=== PATIENT | female | born 1950 | race Caucasian/White ===

== ENCOUNTER 2018-10-02 19:26 | Outpatient (REF) | payer MEDICARE, SELFPAY ==
[2018-10-02 20:11] LABS: ALT 42 U/L (12-78); AST 29 U/L (15-37); Albumin 4.4 g/dL (3.4-5.0); Alkaline Phosphatase 110 U/L (46-116); Anion Gap 12.5 mmol/L (3-11); BUN 19 mg/dL (7-18); Bilirubin, Total 0.6 mg/dL (0.2-1.0); CO2 29.5 mmol/L (21.0-32.0); CREATININE 0.99 mg/dL (0.55-1.02); Calcium 10.6 mg/dL (8.5-10.1); Chloride 99 mmol/L (98-107); Estimated GFR 55.78 (mL/min/1.73m2); Glucose 105 mg/dL (70-100); Potassium 3.7 mmol/L (3.5-5.1); Sodium 141 mmol/L (136-145); TSH 1.89 uIU/mL (0.358-3.74); Total Protein 7.8 g/dL (6.4-8.2)
[2018-10-06 09:56] LABS: Vitamin B12 298 pg/ml (211-911)
== END 2018-10-02 19:46 ==
LOC: NCHCN 19:26
PROVIDERS: PCP Physician Assistant Medical; Visit Provider Physician Assistant Medical
DX: I10 Essential (primary) hypertension (principal); E03.9 Hypothyroidism, unspecified; G62.9 Polyneuropathy, unspecified; R73.09 Other abnormal glucose
CPT/HCPCS: 80053; 82607; 83036; 84443

== ENCOUNTER 2018-11-09 11:55 | Outpatient (REF) | payer MEDICARE, OTHER, SELFPAY ==
--- NOTE | 2018-11-09 11:08 | SKI_PTH ---
PATIENT: Bailey Jackson LOC: N U#:[id number] AGE/SX: 68/F ROOM: RE11/09/[address]: Darius Leon DO : 1950 BED: DIS: 11/09/2018 SPEC #: [id number] RECD: 11/11/18 12:48 STATUS: MOSHE REQ #: [id number] KAYLIN: 11/09/18 11:[address]: Darius Leon DEPT: Surgical Specimen RECD BY: Aniyah Turner ENTERED: 11/11/18 12:48 SP TYPE: MARCO ANTONIO RODRIGUEZ DR: Chely Michelle Tissues: 1 - SKIN BIOPSY(SHAVE/PUNCH) Procedures: SKIN LEVEL 4 Comments: [id number]
== END 2018-11-09 12:15 ==
LOC: LBN 11:55
PROVIDERS: PCP Physician Assistant Medical; Visit Provider Otolaryngology Otolaryngology/Facial Plastic Surgery
DX: L82.1 Other seborrheic keratosis (principal)
CPT/HCPCS: 88305

== ENCOUNTER 2019-10-18 16:37 | Outpatient (REF) | payer MEDICARE, OTHER, SELFPAY ==
[2019-10-18 22:30] LABS: ALT 351 U/L (14-59); AST 148 U/L (15-37); Albumin 3.7 g/dL (3.4-5.0); Alkaline Phosphatase 239 U/L (46-116); Anion Gap 14.4 mmol/L (3-11); BUN 21 mg/dL (7-18); Bilirubin, Total 1.8 mg/dL (0.2-1.0); CO2 28.6 mmol/L (21.0-32.0); CREATININE 1.14 mg/dL (0.55-1.02); Calcium 10.3 mg/dL (8.5-10.1); Calculated LDL 111 mg/dL; Chloride 102 mmol/L (98-107); Cholesterol 189 mg/dL (<200); Estimated GFR 47.26 (mL/min/1.73m2); Glucose 118 mg/dL (74-106); HDL Cholesterol 34 mg/dL (40-60); Potassium 4.3 mmol/L (3.5-5.1); Sodium 145 mmol/L (136-145); TSH 1.08 uIU/mL (0.36-3.74); Total Protein 7.1 g/dL (6.4-8.2); Triglyceride 222 mg/dL (<150)
[2019-10-19 16:36] LABS: GGT 351 U/L (5-55)
[2019-10-21 15:06] LABS: Hepatitis A Antibody IgM Negative (Negative); Hepatitis B Core Antibody Negative (Negative); Hepatitis B surface Ag Negative (Negative); Hepatitis C Ab w Rflx HCV PCR Negative (Negative)
== END 2019-10-18 16:57 ==
LOC: NCHCN 16:37
PROVIDERS: PCP Physician Assistant Medical; Visit Provider Physician Assistant Medical
DX: E78.5 Hyperlipidemia, unspecified (principal); E03.9 Hypothyroidism, unspecified; I10 Essential (primary) hypertension; R79.89 Other specified abnormal findings of blood chemistry; R73.01 Impaired fasting glucose
CPT/HCPCS: 80053; 80061; 86704; 86709; 86803; 87340; 82977; 84443

== ENCOUNTER → 2019-11-01 01:11 | Outpatient (CLI) | payer MEDICARE, OTHER, SELFPAY ==
--- NOTE | 2019-11-01 07:39 | DI.US_ITS ---
EXAM: US ABDOMEN CLINICAL HISTORY: ELEVATED LFT'S.R79.89 TECHNIQUE: Ultrasound abdomen performed using standard protocol. COMPARISON: No exams were available for comparison FINDINGS: LIVER: Diffuse increased echogenicity consistent with hepatic steatosis. No evidence of a hepatic ma ss. There is hepatopetal flow through the portal vein. GALLBLADDER: There is gallbladder sludge present. There are also stones seen within the gallbladder. There does appear to be focal gallbladder wall thickening at its interface with the liver. This ar ea measures approximately 1 centimeter in diameter. No pericholecystic fluid identified. KIDNEYS: Kidneys are symmetric in size. No evidence of renal calculi. No evidence of hydronephrosis. There are bilateral simple renal cysts. The largest is in the left kidney and measures 4.7 x 4.1 x 3. 9 centimeters. BILIARY SYSTEM: Common bile duct measures 6 millimeters. No intrahepatic biliary ductal dilation. TURK'S SIGN: Negative. PANCREAS: Normal where visualized. SPLEEN: Not enlarged. ABDOMINAL AORTA AND IVC: Visualized portions normal caliber. ASCITES: None seen. IMPRESSION: 1. Hepatic steatosis. 2. Gallbladder sludge and cholelithiasis. No biliary ductal dilatation. 3. Focal (1 centimeter) gallbladder wall thickening adjacent to the liver. CT scan is recommended fo r further evaluation. Mass cannot be excluded. 4. Bilateral simple renal cysts.
== END ==
PROVIDERS: PCP Physician Assistant Medical; Visit Provider Physician Assistant Medical
DX: R79.89 Other specified abnormal findings of blood chemistry (principal); K76.0 Fatty (change of) liver, not elsewhere classified; K80.20 Calculus of gallbladder without cholecystitis without obstruction; N28.1 Cyst of kidney, acquired
CPT/HCPCS: 76700

== ENCOUNTER → 2019-11-12 09:54 | Outpatient (BNVA) | payer MEDICARE, OTHER, SELFPAY | PROVIDERS: PCP Physician Assistant Medical; Referring Provider Physician Assistant Medical; Visit Provider Surgery | DX: L82.1 Other seborrheic keratosis (principal); I10 Essential (primary) hypertension | CPT/HCPCS: 99202 ==

== ENCOUNTER → 2019-11-18 02:18 | Outpatient (CLI) | payer MEDICARE, OTHER, SELFPAY ==
[2019-11-18] MEDS: Omnipaque 350 MG/ML 50 ML BTL IJ (09:00)
--- NOTE | 2019-11-18 09:47 | DI.MAMMO_ITS ---
EXAM: MG MAMMO SCREENING CLINICAL HISTORY: SCREENING, [facility] EMERGENCY DEPARTMENT, Z00.8 TECHNIQUE: Mammograms were interpreted according to the usual protocol including computer analysis w VDP CAD system, tomosynthesis and C-view imaging. FINDINGS: The breasts are of moderate density with fairly symmetrical distribution of fibroglandular tissue. N o dominant mass or clumped microcalcification is identified in either breast. Current examination is compared with previous examinations including October 2017 and there has been no gross interval montse nge in appearance in comparison with the previous studies. IMPRESSION: No specific evidence of malignancy at this time. Routine screening examinations are suggested at year ly intervals in this age according the ACS ACR guidelines. Category 1. Breast density, category B. BI-RADS Cat 1 - Negative. Breast Density - Category B - Scattered areas of fibroglandular density.
--- NOTE | 2019-11-18 10:26 | DI.CT_ITS ---
EXAM: CT ABDOMEN PELVIS W CLINICAL HISTORY: ELEVATED LFT'S, R79.89, ABNL ABDOMEN IMAGING, R93.5 TECHNIQUE: CT examination of the abdomen and pelvis was performed with intravenous infusion of 100 c c of Omnique 350 and ingestion of dilute barium. COMPARISON: US ABDOMEN from 11/01/2019 FINDINGS: Images obtained through the lung bases are unremarkable. Liver and spleen appear normal. Recent abd ominal ultrasound showed gallbladder sludge and question of gallbladder fundal mass. No mass confirm ed by CT. Pancreas is unremarkable in appearance. No biliary dilatation. Large duodenal diverticul um. Adrenals and kidneys are unremarkable except for a large left renal cyst. No urinary tract calcifica tion or obstruction. No significant abdominal wall hernia seen. No abdominal or pelvic adenopathy. Abdominal aorta is of normal diameter and no major vascular is seen. Anastomotic sutures of the rectosigmoid and presumed ileocolonic anastomosis noted. IMPRESSION: No gallbladder wall mass identified by CT criteria. No evidence of acute process. MRCP may also be considered as the negative CT does not entirely exclude the possibility of a gallbla dder mass.
[2019-11-18] MEDS: Omnipaque 350 MG/ML 100 ML BTL IJ (10:37)
[2019-11-18] MEDS: Normal Saline - Diluent 50 ML VIAL IV (10:38)
== END ==
PROVIDERS: PCP Physician Assistant Medical; Visit Provider Physician Assistant Medical
DX: Z12.31 Encounter for screening mammogram for malignant neoplasm of breast (principal); K83.8 Other specified diseases of biliary tract; R93.5 Abnormal findings on diagnostic imaging of other abdominal regions, including retroperitoneum; K57.10 Diverticulosis of small intestine without perforation or abscess without bleeding
CPT/HCPCS: 77063; 77067; 74177; J3490; Q9967

== ENCOUNTER 2019-11-22 12:22 | Outpatient (REF) | payer MEDICARE, OTHER, SELFPAY ==
[2019-11-22 23:05] LABS: ALT 26 U/L (14-59); AST 19 U/L (15-37); Albumin 3.9 g/dL (3.4-5.0); Alkaline Phosphatase 123 U/L (46-116); Anion Gap 10.5 mmol/L (3-11); BUN 14 mg/dL (7-18); Bilirubin, Total 0.4 mg/dL (0.2-1.0); CO2 26.5 mmol/L (21.0-32.0); CREATININE 0.92 mg/dL (0.55-1.02); Calcium 9.4 mg/dL (8.5-10.1); Chloride 106 mmol/L (98-107); Glucose 109 mg/dL (74-106); Potassium 4.6 mmol/L (3.5-5.1); Sodium 143 mmol/L (136-145); Total Protein 6.9 g/dL (6.4-8.2)
== END 2019-11-22 12:42 ==
LOC: NCHCN 12:22
PROVIDERS: PCP Physician Assistant Medical; Visit Provider Physician Assistant Medical
DX: R79.89 Other specified abnormal findings of blood chemistry (principal)
CPT/HCPCS: 80053

== ENCOUNTER 2020-11-22 16:10 | Outpatient (REF) | payer MEDICARE, OTHER, SELFPAY ==
[2020-11-22 15:07] LABS: Abs Immature Grans 0.04 10^3/uL (0.0-0.06); Absolute Basophil Count 0.06 10^3/uL (0.0-0.2); Absolute Eosinophil Count 0.05 10^3/uL (0.0-0.7); Basophils % 0.5; Eosinophils % 0.4; HCT 41.8 % (36.0-46.0); HGB 14.2 g/dL (11.2-15.7); Immature Grans % 0.3; Lymphocytes % 9.1; MCH 30.5 pg (27.0-33.0); MCV 89.7 fL (80-95); MPV 9.9 fL (8.0-11.0); Neutrophils % 82.7; Nucleated RBC 0 %; Platelet Count 328 10^3/uL (130-400); RBC 4.66 10^6/uL (3.93-5.22); RDW 13.8 % (11.7-14.6); RDW-SD 45.3 fL; WBC 11.49 10^3/uL (4.4-10.8)
[2020-11-22 15:15] LABS: Absolute Lymphocyte Count 1.05 10^3/uL (1.2-3.4)
[2020-11-22 15:44] LABS: Hemoglobin A1C 5.5 % (<5.7)
[2020-11-22 15:46] LABS: ALT 178 U/L (14-59); AST 127 U/L (15-37); Albumin 3.8 g/dL (3.4-5.0); Alkaline Phosphatase 656 U/L (46-116); Amylase 64 U/L (25-115); Anion Gap 10.4 mmol/L (3-11); BUN 16 mg/dL (7-18); Bilirubin, Total 6.9 mg/dL (0.2-1.0); CO2 26.6 mmol/L (21.0-32.0); CREATININE 1.04 mg/dL (0.55-1.02); Calcium 9.9 mg/dL (8.5-10.1); Chloride 102 mmol/L (98-107); Estimated GFR 52.39 (mL/min/1.73m2); Glucose 119 mg/dL (74-106); Lipase 427 U/L (73-393); Potassium 4.9 mmol/L (3.5-5.1); Sodium 139 mmol/L (136-145); TSH 3.52 uIU/mL (0.36-3.74); Total Protein 7.2 g/dL (6.4-8.2)
== END 2020-11-22 16:30 ==
LOC: NCHCN 16:10
PROVIDERS: PCP Physician Assistant Medical; Visit Provider Physician Assistant Medical
DX: R73.03 Prediabetes (principal); R11.2 Nausea with vomiting, unspecified; E03.9 Hypothyroidism, unspecified; I10 Essential (primary) hypertension
CPT/HCPCS: 80053; 83690; 82150; 83036; 84443; 85025

== ENCOUNTER 2020-11-24 10:46 | Inpatient (IN) | payer MEDICARE, OTHER, SELFPAY ==
[2020-11-24] VITALS (7 sets, daily range): BP systolic 108–168; BP diastolic 70–88; PULSE 57–85; RESP 17–20; TEMP 36.2–36.7; O2SAT 96–99
--- NOTE | 2020-11-24 | DI.US_ITS ---
EXAM: US ABDOMEN CLINICAL HISTORY: choledocholithiasis TECHNIQUE: Ultrasound performed using standard protocol. COMPARISON: US US ABDOMEN from 11/01/2019 FINDINGS: Abdominal ultrasound was performed according to the usual protocol. Today's CT examination showed ch oledocholithiasis, this is not visualized on ultrasound, however the common duct is noted to be dilat ed to 17 millimeters. Note is made of cholelithiasis. No gallbladder wall thickening, negative sono graphic Torre sign. No pericholecystic fluid collection. Pancreas grossly unremarkable as visualized. Spleen is unremarkable in appearance. There are bilate ral simple renal cysts, the largest on the left kidney measuring about 47 millimeters in greatest clive meter. No hydronephrosis. No ascites. Abdominal aorta and IVC are of normal diameter as visualized. IMPRESSION: Cholelithiasis and common duct dilatation are seen. Today's CT examination also showed choledocholit hiasis. DATA REPOSITORY:
--- NOTE | 2020-11-24 10:59 | W.ED.GENAD ---
Discharge Plan Disposition Patient Disposition: [facility] INPATIENT Condition: Stable Discharge Details Clinical Impression: Jaundice, Hyperbilirubinemia, Choledocholithiasis Admit Date/Time: 11/24/20 14:10 Admit Provider: Caleb Rojas Attending Provider: Caleb Rojas Primary Care Provider: Chely Michelle ED Provider: Richa Zhong Discharge Data Discharge Date/Time-TO BE ENTERED AT DEPARTURE: 11/24/20 15:34 Medical Decision Making 70-year-old female presents to the ER with chief complaint of vomiting with eating, radha colored stools and nausea. This has been ongoing for approximately 1 month. She has been being followed by her primary care provider who did call and speak to the ER prior to arrival. She had labs drawn on November 22, 2020 which showed elevated liver enzymes and elevated lipase. She has been referred here for a CT abdomen pelvis. She reports weight loss approximately 10 pounds. Denies any chest pain, shortness of breath, dysuria, fever chills or any other complaints. On initial exam patient appears jaundiced with scleral icterus. Her abdomen is soft and nontender upon initial exam. She has a surgical history of colectomy and appendectomy in 2004. Past medical history of hypertension, hypothyroidism. CBC is largely unremarkable, sodium 137, potassium 4.0, BUN is 22, creatinine 1.50, GFR 34.33, glucose 118, magnesium 2.1, total bilirubin is 6.0, conjugated bilirubin 4.38 AST is 76, ALT 125, alk phos is 574, lipase is 433. She does have urine positive urine protein 100, trace ketones, trace blood and large bilirubin noted in her urinalysis. Hepatitis panel added onto labs which is pending at this time. 1255: Spoke with Radiologist regarding CT, Dilation of Gallbladder and CBD 1308: Spoke with patient regarding possible plan for admission and ERCP with [facility]. Page out to [facility] GI consult, pending callback at at this time. COMPARISON: CT CT ABDOMEN PELVIS W from 11/18/2019 FINDINGS: VISUALIZED LUNG BASES: Mild increased markings in the lingular segment of the left lung. There are no pleural effusions.. ABDOMEN: There is no ascites. LIVER/BILIARY: There is now significant dilatation of the biliary tree, both intra and extrahepatic. The CBD diameter measures up to 1.9 centimetres and. There is subtle densities in the lower CBD measuring 10-11 millimeter. Similar density to what is seen in the gallbladder lumen. There are either is polyps or noncalcified gallstones, the largest measuring 2.1 x 2.1 centimeters within the gallbladder lumen. Gallbladder is distended. Cystic duct is distended. PANCREAS: No evidence of pancreatic mass nor dilatation of the pancreatic duct. No peripancreatic fluid collection. No pancreatic calcifications. SPLEEN: Spleen is not enlarged. No obvious intrasplenic lesions. Splenic and portal veins are patent. ADRENALS: There are no significant adrenal masses. KIDNEYS:There is again noted a large cyst in the anterior cortex of the left kidney which measures 5 by 5 centimetres. No solid renal masses. Smaller cyst is noted in the lateral cortex of the right kidney measuring 1.3 x 1.2 centimetres. No solid renal masses or calculi nor hydronephrosis. No hydroureter. Urinary bladder is collapsed.. ABDOMINAL AORTA: Abdominal aorta is calcified but not enlarged. There is no ljxdilvuaucpswa-kvzr-ssjrwf adenopathy. No adenopathy around the aortic bifurcation nor along the iliac chains and there is no inguinal adenopathy. ABDOMINAL WALL/GI: Evidence of subtotal colectomy with ileo rectal anastomosis again evident. No bowel obstruction. Duodenal diverticulum is again noted, similar to 1 year ago. IMPRESSION: 1. Compared to the CT scan of 11/18/2019 there has been significant deterioration. There is now impressive dilatation at the entire biliary tree down to and including the lower CBD where there appears to be subtle density within the lower CBD lumen. This appears to be similar density to the noncalcified findings in the gallbladder lumen. Either noncalcified gallstones or tumor fragment. ERCP is recommended. There does not appear to be an obvious pancreatic head mass although pancreatic head is again noted to be partially obscured by a prominent duodenal diverticulum Pancreatic duct is not dilated. 2. There is no ascites nor obvious mesenteric adenopathy. 3. Again noted is evidence of subtotal colectomy with ileocolic anastomosis and no evidence of acute inflammatory process in the pelvis. 4. Large cyst left kidney again noted. No solid renal masses. No hydronephrosis. No significant osseous lesions. 1316: Spoke with hospitalist, who recommends consult for transfer with [facility]. 1320: Spoke with [facility] transfer center, awaiting call back 1345: Spoke with Dr. York ERCP specialist who recommends ERCP and endoscopic U.S. early next week. He does not think patient is in need of emergent ERCP. But they are open to transfer Friday or Friday. 1350: Spoke with Dr. Chang at [facility] regarding patient case and details, They will see if they can put her on schedule for ERCP today with return to our facility for admission. Dr. Chang to call me back. 1403: Unable to add on to OR today, they are willing to touch base tomorrow, will revisit situation with Dr. Rojas. 1411: Spoke with Dr. Rojas, he agrees to accept patient for admission, pending ERCP at either [facility] or [facility] early next week. HPI General Mode of arrival: ambulatory. Date/Time Provider Initiated Documentation: 11/24/20 10:47. Limitations to Documentation: no limitations. Information obtained by: patient. HPI Narrative: 70-year-old female presents to the ER with chief complaint of vomiting with eating, radha colored stools and nausea. This has been ongoing for approximately 1 month. She has been being followed by her primary care provider who did call and speak to the ER prior to arrival. She had labs drawn on November 22, 2020 which showed elevated liver enzymes and elevated lipase. She has been referred here for a CT abdomen pelvis. She reports weight loss approximately 10 pounds. Denies any chest pain, shortness of breath, dysuria, fever chills or any other complaints. On initial exam patient appears jaundiced with scleral icterus. Her abdomen is soft and nontender upon initial exam. She has a surgical history of colectomy and appendectomy in 2004. Past medical history of hypertension, hypothyroidism. Related Data Home Medications Medication Instructions Recorded Confirmed aspirin 81 mg tablet,delayed 81 mg PO DAILY 10/26/19 11/24/20 release calcium carbonate 600 mg (1,500 1 tab PO DAILY 10/26/19 11/24/20 mg)-vitamin D3 400 unit tablet levothyroxine 88 mcg capsule 88 mcg PO DAILY 10/26/19 11/24/20 losartan 100 1 tab PO DAILY 10/26/19 11/24/20 mg-hydrochlorothiazide 25 mg tablet multivitamin 1 cap PO DAILY 10/26/19 11/24/20 ondansetron HCl 4 mg PO Q6H PRN PRN 11/24/20 11/24/20 Allergies Allergy/AdvReac Type Severity Reaction Status Date / Time ampicillin Allergy Mild unknown Verified 11/24/20 10:54 Sulfa (Sulfonamide Allergy Mild unknown Verified 11/24/20 10:54 Antibiotics) General Stated Complaint: Abd Prob ANGELIQUE: 3 Review of Systems Narrative: Constitutional: Negative for weight loss, alert and oriented, well groomed, normal body habitus, appears comfortable. HEENT: Denies trauma, headaches, blurry vision, nasal discharge, sore throat, trouble swallowing. Chest: Denies chest pain, palpitations, irregular rhythm, hypertension. Respiratory: Denies Shortness of breath, cough, hemoptysis. GI: Denies constipation. Abdominal pain, nausea vomiting with eating, cream/radha colored stools. Weight loss approximately 10 pounds. : Denies dysuria, hematuria, flank pain, rectal bleeding. Neuro: Denies dizziness, blurry vision, weakness, syncope, headache or facial numbness. Hematologic: Denies easy bruising, intolerance to heat or cold, hair loss. [facility] Medical History (Updated 11/24/20 @ 14:37 by Nazia Mercado NP) Elevated LFTs Hyperlipidemia Hypertension Hypothyroid Impaired fasting glucose Neuropathy Seborrheic keratoses Social History Smoking/Tobacco Use Status: Never Smoking risk assessment performed?: Yes Alcohol Intake: current Alcohol Intake frequency: holidays/special occasions only Drug use: Never Substance use type: does not use Do you feel safe at home: Yes Do you feel safe in your relationship?: Yes Exam Narrative Exam Narrative: Constitutional: Alert and oriented x3. Appears stated age. Normal body habitus. Head: Normocephalic, no trauma. Eyes: Pupils PERRLA, Red reflex noted, EOM's intact. Eyelids symmetrical without lesions, discharge, or swelling. Positive scleral icterus noted. ENT: Bilateral TM's WNL, External ear normal to inspection, no mastoid TTP, swelling, or erythema, Nasal turbinates WNL, no nasal discharge. Normal dentition, Posterior pharynx WNL, no exudate. Chest: RRR, Normal S1, S2, distal pulses intact. Resp: Lungs clear to auscultation bilaterally, no wheezes, rales, or rhonchi. Abdomen: Soft, nondistended nontender to palpation. Musculoskeletal: Normal gait, 5/5 strength to all four extremities. Skin: Appears jaundiced. Capillary refill less than 2 sec. Neurologic: Cranial nerves II-XII intact. Alert and oriented x 3. DTR's intact. Hematologic/Lymphatic: No ecchymosis, no lymphadenopathy. Course Vital Signs Vital signs: Vital Signs Temperature 36.7 C 11/24/20 10:52 Pulse 85 11/24/20 10:52 Respiratory Rate 11/24/20 10:52 Blood Pressure 108/75 11/24/20 10:52 Pulse Oximetry 99 11/24/20 10:52 Temperature 36.7 C 11/24/20 10:52 Temperature Source Skin 11/24/20 10:52 Pulse 85 11/24/20 10:52 Respiratory Rate 20 11/24/20 10:52 Respiratory Effort Non-Labored 11/24/20 10:55 Blood Pressure 108/75 11/24/20 10:52 Blood Pressure Position Sitting 11/24/20 10:52 Pulse Oximetry 99 11/24/20 10:52 Oxygen Delivery Method Room Air 11/24/20 10:52 Oxygen Flow Rate 0 11/24/20 10:52 Pain Level 0 11/24/20 10:52
[2020-11-24 11:15] LABS: Abs Immature Grans 0.04 10^3/uL (0.0-0.06); Absolute Basophil Count 0.04 10^3/uL (0.0-0.2); Absolute Eosinophil Count 0.13 10^3/uL (0.0-0.7); Absolute Lymphocyte Count 1.14 10^3/uL (1.2-3.4); Absolute Neutrophil Count 7.14 10^3/uL (1.2-6.7); Basophils % 0.4; Eosinophils % 1.4; HGB 13.7 g/dL (11.2-15.7); Immature Grans % 0.4; Lymphocytes % 12.7; MCH 30.4 pg (27.0-33.0); MCHC 33.4 % (32.0-36.0); MCV 90.9 fL (80-95); MPV 9.2 fL (8.0-11.0); Monocytes % 5.6; Neutrophils % 79.5; Nucleated RBC 0 %; Platelet Count 320 10^3/uL (130-400); RBC 4.51 10^6/uL (3.93-5.22); RDW 13.9 % (11.7-14.6); RDW-SD 46.5 fL; WBC 8.99 10^3/uL (4.4-10.8)
[2020-11-24 11:23] LABS: Bilirubin Large (Negative); Blood Trace-intact (Negative); Clarity Sl Cloudy (Clear); Glucose 100 mg/dL (Negative); Ketones Trace mg/dL (Negative); Leukocyte Esterase Negative (Negative); Specific Gravity >= 1.030 (1.005-1.025); Urobilinogen >=8.0 EU/dL (Up TO 0.2); pH 5.5 (5-8)
[2020-11-24 11:33] LABS: ALT 125 U/L (14-59); AST 76 U/L (15-37); Albumin 3.9 g/dL (3.4-5.0); Alkaline Phosphatase 574 U/L (46-116); Anion Gap 11.1 mmol/L (3-11); BUN 22 mg/dL (7-18); CO2 23.9 mmol/L (21.0-32.0); Calcium 9.7 mg/dL (8.5-10.1); Chloride 102 mmol/L (98-107); Estimated GFR 34.33 (mL/min/1.73m2); Glucose 118 mg/dL (74-106); Lipase 433 U/L (73-393); Magnesium 2.1 mg/dL (1.8-2.4); Sodium 137 mmol/L (136-145)
[2020-11-24] MEDS: Normal Saline Flush 10 ML SYR IVP (11:33)
[2020-11-24] MEDS: Omnipaque 350 MG/ML 100 ML BTL IJ (11:33)
[2020-11-24] MEDS: Normal Saline - Diluent 50 ML VIAL IV (11:33)
[2020-11-24 11:34] LABS: Bilirubin, Direct 4.38 mg/dL (0.00-0.20)
--- NOTE | 2020-11-24 11:35 | DI.CT_ITS ---
EXAM: CT ABDOMEN PELVIS W CLINICAL HISTORY: Abdominal pain,. TECHNIQUE: Imaging Protocol: Axial computed tomography images with coronal and sagittal reformatted images were created and reviewed CONTRAST MATERIAL: Intravenous: Omnipaque 100cc Oral: None COMPARISON: CT CT ABDOMEN PELVIS W from 11/18/2019 FINDINGS: VISUALIZED LUNG BASES: Mild increased markings in the lingular segment of the left lung. There are n o pleural effusions.. ABDOMEN: There is no ascites. LIVER/BILIARY: There is now significant dilatation of the biliary tree, both intra and extrahepatic. The CBD diameter measures up to 1.9 centimetres and. There is subtle densities in the lower CBD brian suring 10-11 millimeter. Similar density to what is seen in the gallbladder lumen. There are either is polyps or noncalcified gallstones, the largest measuring 2.1 x 2.1 centimeters within the gallbla dder lumen. Gallbladder is distended. Cystic duct is distended. PANCREAS: No evidence of pancreatic mass nor dilatation of the pancreatic duct. No peripancreatic fl uid collection. No pancreatic calcifications. SPLEEN: Spleen is not enlarged. No obvious intrasplenic lesions. Splenic and portal veins are paten t. ADRENALS: There are no significant adrenal masses. KIDNEYS:There is again noted a large cyst in the anterior cortex of the left kidney which measures 5 by 5 centimetres. No solid renal masses. Smaller cyst is noted in the lateral cortex of the right k idney measuring 1.3 x 1.2 centimetres. No solid renal masses or calculi nor hydronephrosis. No hydr oureter. Urinary bladder is collapsed.. ABDOMINAL AORTA: Abdominal aorta is calcified but not enlarged. There is no qwrcpqmaevbdeuh-qvwr-vrw tic adenopathy. No adenopathy around the aortic bifurcation nor along the iliac chains and there is no inguinal adenopathy. ABDOMINAL WALL/GI: Evidence of subtotal colectomy with ileo rectal anastomosis again evident. No bow el obstruction. Duodenal diverticulum is again noted, similar to 1 year ago. PELVIS: GI: No evidence of appendicitis.No evidence of sigmoid diverticulitis. LYMPH NODES: There is no intrapelvic nor inguinal adenopathy. REPRODUCTIVE: Uterus size is normal. No abnormal adnexal masses nor free fluid in the cul-de-sac. URINARY BLADDER: Collapsed. OSSEOUS: No significant osseous lesions. IMPRESSION: 1. Compared to the CT scan of 11/18/2019 there has been significant deterioration. There is now impr essive dilatation at the entire biliary tree down to and including the lower CBD where there appears to be subtle density within the lower CBD lumen. This appears to be similar density to the noncalcif ied findings in the gallbladder lumen. Either noncalcified gallstones or tumor fragment. ERCP is re commended. There does not appear to be an obvious pancreatic head mass although pancreatic head is a gain noted to be partially obscured by a prominent duodenal diverticulum Pancreatic duct is not dilated. 2. There is no ascites nor obvious mesenteric adenopathy. 3. Again noted is evidence of subtotal colectomy with ileocolic anastomosis and no evidence of acute inflammatory process in the pelvis. 4. Large cyst left kidney again noted. No solid renal masses. No hydronephrosis. No significant osseous lesions. RADIATION DOSE DELIVERED: 661.69mGy.cm Total DLP DATA REPOSITORY: All CT scans at this facility are submitted to the National Radiology Data Registry (NRDR) Dose Index Registry (DIR) with the [employer] [place] [employer] (ACR). RADIATION OPTIMIZATION: All CT scans at this facility use at least one of these dose optimization te chniques: automated exposure control; mA and/or kV adjustment per patient size (includes targeted exa ms where dose is matched to clinical indication); or iterative reconstruction.
[2020-11-24 11:37] LABS: Nitrite Color Interference (Negative)
[2020-11-24 11:38] LABS: Epithelial Cells Moderate HPF (Negative); Other Cells Few Renal (Negative); RBC 0-2 HPF (0-2); WBC 0-2 HPF (0-5)
[2020-11-24 11:40] LABS: C & S Indicated? No; Casts 10-20 Hyaline LPF (Negative); Crystals Many Amorphous HPF (Negative); Mucus Trace (Negative)
[2020-11-24] MEDS: Normal Saline 1,000 ML 150 ML IV ×2 (13:18→20:56)
[2020-11-24 14:10] LABS: INR 1.1 (0.9-1.1); Prothrombin Time 10.7 sec (9.3-11.0)
--- NOTE | 2020-11-24 14:17 | HPE_ITS ---
Date of service: 11/24/20 Time of Service: 14:17 Assessment and Plan Assessment and plan (1) Choledocholithiasis: Status: Acute Assessment and plan: will admit to med/surg pending ERCP at [facility], d epending on clinical stability and symptoms and bed availability. NPO IV fluids, antiemetics, pain management monitor closely for acute pancreatitis or acute cholangitis and transfer for emergent ERCP if needed. avoid hepatotoxic drugs (2) Acute kidney injury: Status: Acute Assessment and plan: likely pre-renal d/t poor PO intake and GI losses from vomiting. IV hydration and monitor avoid hepatotoxic drugs hold losartan/hctz consider renal US. (3) Hypertension: Status: Chronic Assessment and plan: blood pressure controlled, will monitor as losartan/hctz on hold for ADALID (4) Hypothyroid: Status: Chronic Assessment and plan: TSH 3.52 Nov 22, 2020. continue synthroid. (5) Discharge planning issues: Status: Acute Assessment and plan: transfer for ERCP when bed available. discussed with Dr Rojas History of Present Illness History of Present Illness Chief Complaint: abdominal pain, nausea and vomiting Narrative: This is a 70-year-old female with a past medical history of hypertension, hypothyroidism, colectomy and appendectomy, who presented to the ED with a chief complaint of nausea and vomiting associated with eating and radha colored stools. Symptoms have been ongoing for approximately 1 month. She saw her primary care provider who checked oupatient labs on November 22, 2020 which showed elevated liver enzymes and elevated lipase. She was referred for a CT abdomen pelvis. She reports weight loss approximately 10 pounds. Denies any chest pain, shortness of breath, dysuria, fever chills or any other complaints. On initial exam patient appears jaundiced with scleral icterus. Her abdomen is soft and nontender on ED arrival. work up shows choledocholithiasis. Her case is discussed with GI at [facility] and [facility] and beds are not available for transfer for ERCP. We are asked to admit her here until a bed becomes available or she clinically deteriorates. she is accepted on hospitalist services. Review of Systems All systems reviewed & are unremarkable except as noted in HPI and below Constitutional Constitutional: Denies fever(s) Cardiovascular Cardiovascular: Denies chest pain Respiratory Respiratory: Denies chest congestion and Denies cough Gastrointestinal Gastrointestinal: Reports change in stool character, Reports nausea and Reports vomiting Integumentary/Breasts Skin/Breast: Denies lesions and Denies rash Neurologic Neurologic: Denies confusion Psychiatric Psychiatric: Denies confusion Hematologic/Lymphatic Hematologic/Lymphatic: Denies easy bleeding and Denies easy bruising [facility] Medical History (Updated 11/24/20 @ 14:37 by Nazia Mercado NP) Elevated LFTs Hyperlipidemia Hypertension Hypothyroid Impaired fasting glucose Neuropathy Seborrheic keratoses Social History Smoking/Tobacco Use Status: Never Smoking risk assessment performed?: Yes Alcohol Intake: current Alcohol Intake frequency: holidays/special occasions only Drug use: Never Substance use type: does not use Do you feel safe at home: Yes Do you feel safe in your relationship?: Yes Meds Home Medications and Allergies Home Medications Medication Instructions Recorded Confirmed Type aspirin 81 mg tablet,delayed 81 mg PO DAILY 10/26/19 11/24/20 History release calcium carbonate 600 mg (1,500 1 tab PO DAILY 10/26/19 11/24/20 History mg)-vitamin D3 400 unit tablet levothyroxine 88 mcg capsule 88 mcg PO DAILY 10/26/19 11/24/20 History losartan 100 1 tab PO DAILY 10/26/19 11/24/20 History mg-hydrochlorothiazide 25 mg tablet multivitamin 1 cap PO DAILY 10/26/19 11/24/20 History ondansetron HCl 4 mg PO Q6H PRN PRN 11/24/20 11/24/20 History Allergies Allergy/AdvReac Type Severity Reaction Status Date / Time ampicillin Allergy Mild unknown Verified 11/24/20 10:54 Sulfa (Sulfonamide Allergy Mild unknown Verified 11/24/20 10:54 Antibiotics) Exam Const General: cooperative, healthy appearing, comfortable, no acute distress and well groomed Nutritional Appearance: average body habitus Orientation: alert, awake and oriented x3 HENMT Head: normal to inspection, normocephalic and atraumatic Face and sinus: normal facial exam Mouth: oral mucosae normal Eyes General: appearance normal, both eyes and all related structures Eyelids: eyelids normal Conjunctivae: conjunctivae normal Sclera: sclerae normal Resp Effort & Inspection: normal respiratory effort Auscultation: clear to auscultation bilaterally Cardio Rate: regular rate Rhythm: regular rhythm GI Inspection: normal to inspection Palpation: soft, not firm, no guarding, no masses, nontender and No ascites Auscultation: normal bowel sounds Skin General skin exam: no rashes or lesions noted Neuro General: patient alert, patient awake, patient oriented x3 and moves all extremities Cranial Nerves: CN's II-XI intact bilaterally Extrem General: normal to inspection and full ROM Results Labs Result diagrams: 11/24/20 11:00 11/24/20 11:00 Labs: Laboratory Results - last 24 hr 11/24/20 11/24/20 11/24/20 11:00 11:00 11:00 WBC 8.99 RBC 4.51 Hgb 13.7 Hct 41.0 MCV 90.9 MCH 30.4 MCHC 33.4 RDW 13.9 Plt Count 320 MPV 9.2 Immature Gran % 0.4 Neutrophils % 79.5 Lymphocytes % 12.7 Monocytes % 5.6 Eosinophils % 1.4 Basophils % 0.4 Nucleated RBC % 0 Absolute Neutrophils 7.14 H Absolute Lymphocytes 1.14 L Absolute Monocytes 0.50 Absolute Eosinophils 0.13 Absolute Basophils 0.04 PT INR Sodium 137 Potassium 4.0 Chloride 102 Carbon Dioxide 23.9 Anion Gap 11.1 H BUN 22 H D Creatinine 1.50 H Estimated GFR/1.73 m2 34.33 Glucose 118 H Calcium 9.7 Magnesium 2.1 Total Bilirubin 6.0 H Conjugated Bilirubin 4.38 H AST 76 H ALT 125 H Alkaline Phosphatase 574 H Total Protein 8.0 Albumin 3.9 Lipase 433 H Urine Color Urine Clarity Urine pH Ur Specific Marne Urine Protein Urine Ketones Urine Blood Urine Nitrite Urine Bilirubin Urine Urobilinogen Ur Leukocyte Esterase Urine RBC Urine WBC Ur Epithelial Cells Urine Crystals Urine Bacteria Urine Casts Urine Mucus Urine Other Ur Culture Indicated? Urine Glucose 11/24/20 11/24/20 11:15 13:40 WBC RBC Hgb Hct MCV MCH MCHC RDW Plt Count MPV Immature Gran % Neutrophils % Lymphocytes % Monocytes % Eosinophils % Basophils % Nucleated RBC % Absolute Neutrophils Absolute Lymphocytes Absolute Monocytes Absolute Eosinophils Absolute Basophils PT 10.7 INR 1.1 Sodium Potassium Chloride Carbon Dioxide Anion Gap BUN Creatinine Estimated GFR/1.73 m2 Glucose Calcium Magnesium Total Bilirubin Conjugated Bilirubin AST ALT Alkaline Phosphatase Total Protein Albumin Lipase Urine Color Urine Clarity Sl cloudy Urine pH 5.5 Ur Specific Marne >= 1.030 H Urine Protein 100 H Urine Ketones Trace H Urine Blood Trace-intact H Urine Nitrite Color interference Urine Bilirubin Large H Urine Urobilinogen >=8.0 Ur Leukocyte Esterase Negative Urine RBC 0-2 Urine WBC 0-2 Ur Epithelial Cells Moderate Urine Crystals Many amorphous Urine Bacteria Urine Casts 10-20 hyaline Urine Mucus Trace Urine Other Few renal Ur Culture Indicated? No Urine Glucose 100 Last Vital Signs Temp 36.6 C 11/24/20 12:08 Pulse 68 11/24/20 12:26 Resp 18 11/24/20 12:26 BP 116/82 11/24/20 12:26 Pulse Ox 98 11/24/20 12:26 COVID-19 Screening Have you, or household traveled for leisure in last 14 days?: No Had IN PERSON contact w/suspected or confirmed C-19 person: No
[2020-11-24 14:30] LABS: Source Nasopharynx
[2020-11-24 15:16] LABS: COVID-19 PCR Negative (Negative); Influenza A PCR Negative (Negative); Influenza B PCR Negative (Negative); RSV PCR Negative (Negative)
[2020-11-24] MEDS: Pantoprazole 40 MG VIAL IVP (15:38)
[2020-11-25 03:28] VITALS: BP 118/69; PULSE 57; RESP 17; TEMP 36.7; O2SAT 97
[2020-11-25] MEDS: Normal Saline 1,000 ML 150 ML IV ×4 (03:41→22:53)
[2020-11-25 06:54] LABS: Abs Immature Grans 0.03 10^3/uL (0.0-0.06); Absolute Basophil Count 0.03 10^3/uL (0.0-0.2); Absolute Eosinophil Count 0.18 10^3/uL (0.0-0.7); Absolute Lymphocyte Count 1.32 10^3/uL (1.2-3.4); Absolute Neutrophil Count 3.87 10^3/uL (1.2-6.7); Basophils % 0.5; HCT 34.2 % (36.0-46.0); HGB 11.2 g/dL (11.2-15.7); Immature Grans % 0.5; Lymphocytes % 22.3; MCH 30.5 pg (27.0-33.0); MCHC 32.7 % (32.0-36.0); MCV 93.2 fL (80-95); MPV 9.2 fL (8.0-11.0); Monocytes % 8.4; Neutrophils % 65.3; Nucleated RBC 0 %; Platelet Count 256 10^3/uL (130-400); RBC 3.67 10^6/uL (3.93-5.22); RDW 14.2 % (11.7-14.6); RDW-SD 48.7 fL; WBC 5.93 10^3/uL (4.4-10.8)
[2020-11-25 07:10] LABS: ALT 78 U/L (14-59); AST 38 U/L (15-37); Albumin 2.8 g/dL (3.4-5.0); Alkaline Phosphatase 379 U/L (46-116); Anion Gap 7.1 mmol/L (3-11); BUN 21 mg/dL (7-18); Bilirubin, Total 2.3 mg/dL (0.2-1.0); CO2 23.9 mmol/L (21.0-32.0); CREATININE 1.13 mg/dL (0.55-1.02); Calcium 8.4 mg/dL (8.5-10.1); Chloride 109 mmol/L (98-107); Glucose 67 mg/dL (74-106); Sodium 140 mmol/L (136-145)
[2020-11-25 08:47] VITALS: BP 126/64; PULSE 58; RESP 16; TEMP 36.8; O2SAT 96
[2020-11-25] MEDS: Pantoprazole 40 MG VIAL IVP (08:56)
[2020-11-25] MEDS: Normal Saline Flush 10 ML SYR IVP (08:57)
--- NOTE | 2020-11-25 11:05 | PHA.REVIEW ---
Pharmacy Admission Review - Admission Clinical Review (Last Updated 11/24/20 @ 14:26 by Nazia Mercado NP) Acute kidney injury (Acute) Discharge planning issues (Acute) Jaundice (Acute) Hyperbilirubinemia (Acute) Choledocholithiasis (Acute) ampicillin Allergy (Mild, Verified 11/24/20 10:54) unknown Sulfa (Sulfonamide Antibiotics) Allergy (Mild, Verified 11/24/20 10:54) unknown Height 5 ft 4 in Weight 58.3 kg - Renal Dosing Renal Dosing: BUN 21 mg/dL (7-18) H 11/25/20 06:33 Creatinine 1.13 mg/dL (0.55-1.02) H 11/25/20 06:33 Medications needing adjustments: Reviewed (CRCL ~40ML/MIN) - Anticoagulation Anticoagulation: Hgb 11.2 g/dL (11.2-15.7) D 11/25/20 06:33 Hct 34.2 % (36.0-46.0) L 11/25/20 06:33 Plt Count 256 10^3/uL (130-400) 11/25/20 06:33 INR 1.1 (0.9-1.1) 11/24/20 13:40 Creatinine 1.13 mg/dL (0.55-1.02) H 11/25/20 06:33 DVT Prohphylaxis: Intervened (will ask if appropriate) Therapeutic Anticoagulation: N/A - Relevant Labs Sodium 140 mmol/L (136-145) 11/25/20 06:33 Potassium 4.0 mmol/L (3.5-5.1) 11/25/20 06:33 Chloride 109 mmol/L (98-107) H 11/25/20 06:33 Magnesium 2.1 mg/dL (1.8-2.4) 11/24/20 11:00 Electrolytes, C-Reactive P, ESR: Reviewed - DM Control DM Control: Glucose 67 mg/dL (74-106) L D 11/25/20 06:33 Insulin Dosing: N/A - BP Control BP Control: Blood Pressure 126/64 Blood Pressure 118/69 If elevated: N/A - Qtc Review If Elevated: N/A - IV to PO Switch IV Medications: Reviewed (all meds iv) - Home Meds Relevent Home Meds Not ordered & why?: levothyroxine, losartan/hctz(holding due to acute kidney injury) - Comments Comments/Follow Ups: expect levothyroxine, losartan/hctz to be ordered possibly dvt prophylaxis. expect pt to do down/back Friday for ERCP
--- NOTE | 2020-11-25 13:13 | PGE_ITS ---
Date of Service Date of service: 11/25/20 Time of Service: 07:37 Assessment and Plan Assessment and plan (1) Acute kidney injury: Status: Acute Assessment and plan: Creatinine down from 1.5 to 1.13. Oral hydration. (2) Choledocholithiasis: Status: Acute Assessment and plan: Bilirubin and LFT's much improved. No pain and tolerating oral intake. Likely pass a gallstone with decompression of biliary system. Spoke with GI Fellow at [facility]. Patient is stable and improving. Plan to transport to [facility] on Monday 11/27 for ERCP then back to [facility]. OK for regular diet as tolerated then NPO at [facility] on 11/26. (3) Hypothyroid: Status: Chronic Assessment and plan: Cont replacement tx. (4) Hypertension: Status: Chronic Assessment and plan: BP controlled. Holding Losartan/HCTZ. Restart if BP elevates. Subjective Subjective Patient reports: no new complaints, feels better, tolerating liquids well and afebrile; denies nausea, vomiting and shortness of breath Exam Const General: cooperative and no acute distress Nutritional Appearance: average body habitus Orientation: alert and oriented x3 Eyes Sclera: sclerae normal Pupils: PERRL Resp Effort & Inspection: normal respiratory effort Auscultation: clear to auscultation bilaterally Cardio Rate: regular rate Rhythm: regular rhythm Heart Sounds: S1 normal and S2 normal GI Inspection: normal to inspection Palpation: soft and nontender Extrem General: no pedal edema and no calf tenderness Objective Last Vital Signs Temp 36.8 C 11/25/20 08:47 Pulse 58 L 11/25/20 08:47 Resp 16 11/25/20 08:47 BP 126/64 11/25/20 08:47 Pulse Ox 96 11/25/20 08:47 Laboratory Results - last 24 hr 11/24/20 11/24/20 11/25/20 13:40 14:25 06:33 WBC RBC Hgb Hct MCV MCH MCHC RDW Plt Count MPV Immature Gran % Neutrophils % Lymphocytes % Monocytes % Eosinophils % Basophils % Nucleated RBC % Absolute Neutrophils Absolute Lymphocytes Absolute Monocytes Absolute Eosinophils Absolute Basophils PT 10.7 INR 1.1 Sodium 140 Potassium 4.0 Chloride 109 H Carbon Dioxide 23.9 Anion Gap 7.1 BUN 21 H Creatinine 1.13 H Estimated GFR/1.73 m2 47.60 Glucose 67 L D Calcium 8.4 L Total Bilirubin 2.3 H AST 38 H ALT 78 H Alkaline Phosphatase 379 H Total Protein 6.0 L Albumin 2.8 L COVID-19 Source Nasopharynx SARS-CoV-2 (PCR) Negative Influenza Type A (PCR) Negative Influenza Type B (PCR) Negative RSV (PCR) Negative 11/25/20 06:33 WBC 5.93 D RBC 3.67 L Hgb 11.2 D Hct 34.2 L MCV 93.2 MCH 30.5 MCHC 32.7 RDW 14.2 Plt Count 256 MPV 9.2 Immature Gran % 0.5 Neutrophils % 65.3 Lymphocytes % 22.3 Monocytes % 8.4 Eosinophils % 3.0 Basophils % 0.5 Nucleated RBC % 0 Absolute Neutrophils 3.87 Absolute Lymphocytes 1.32 Absolute Monocytes 0.50 Absolute Eosinophils 0.18 Absolute Basophils 0.03 PT INR Sodium Potassium Chloride Carbon Dioxide Anion Gap BUN Creatinine Estimated GFR/1.73 m2 Glucose Calcium Total Bilirubin AST ALT Alkaline Phosphatase Total Protein Albumin COVID-19 Source SARS-CoV-2 (PCR) Influenza Type A (PCR) Influenza Type B (PCR) RSV (PCR)
[2020-11-25 15:23] VITALS: BP 130/72; PULSE 60; RESP 19; TEMP 36.8; O2SAT 96
--- NOTE | 2020-11-25 15:27 | INITIAL_ITS ---
- If Service Date Differs Date of service: 11/25/20 Time of Service: 15:40 Care Management Initial Assess REASON FOR HOSPITALIZATION:: Choledocholithiasis PAST MEDICAL HISTORY/PAST SURGICAL HISTORY:: Elevated LFTs, hyperlipidemia, hypertension, hypothyroid, impaired fasting glucose, neuropathy, seborrheic keratoses PREVIOUS FUNCTIONAL STATUS/SOCIAL/FAMILY SUPPORTS:: Bailey resides with her , Adonis in [place], [place]. She is independent at baseline in the community. CURRENT FUNCTIONAL STATUS:: Bailey is admitted for further monitoring, awaiting down and back to [facility] for an ERCP-anticipated on Friday, per provider. In the event Bailey's symptoms or status warrants, she will be emergently transferred. She is currently comfortable; pleasant and cooperative. ADVANCE DIRECTIVES:: None on file. Has patient been provided with info about the portal/API?: Yes Did the patient sign up for the portal?: No CODE STATUS:: Full Code INSURANCE COVERAGE / FINANCIAL ISSUES:: [facility]. [place] CURRENT HOME/COMMUNITY SERVICES/EQUIPMENT:: Hand-held shower PRIMARY CARE PHYSICIAN:: Chely [facility] POTENTIAL DISCHARGE NEEDS:: ERCP at [facility], coordianted down and [id number]. PATIENT/FAMILY EDUCATION NEEDS:: Review instructions, discuss self care needs upon discharge, Ask Me Three. ANTICIPATED BARRIERS TO DISCHARGE:: None identified. TRANSPORTATION:: EMS facility to facility, private vehicle with family to home. PLAN:: Bailey is admitted for further monitoring, awaiting down and back to [facility] for an ERCP-anticipated on Friday, per provider. In the event Bailey's symptoms or status warrants, she will be emergently transferred.
[2020-11-25 20:27] VITALS: BP 152/79; PULSE 58; RESP 18; TEMP 36.7; O2SAT 96
[2020-11-26 04:44] VITALS: BP 137/72; PULSE 66; RESP 15; TEMP 37.2; O2SAT 96
[2020-11-26] MEDS: Normal Saline 1,000 ML 150 ML IV (05:17)
[2020-11-26] MEDS: Levothyroxine 88 MCG TAB PO (05:17)
[2020-11-26 06:58] LABS: Abs Immature Grans 0.04 10^3/uL (0.0-0.06); Absolute Basophil Count 0.03 10^3/uL (0.0-0.2); Absolute Eosinophil Count 0.09 10^3/uL (0.0-0.7); Absolute Monocyte Count 0.56 10^3/uL (0.1-0.8); Absolute Neutrophil Count 8.91 10^3/uL (1.2-6.7); Basophils % 0.3; Eosinophils % 0.8; HCT 33.8 % (36.0-46.0); HGB 11.3 g/dL (11.2-15.7); Immature Grans % 0.4; Lymphocytes % 9.4; MCH 30.1 pg (27.0-33.0); MCHC 33.4 % (32.0-36.0); MCV 89.9 fL (80-95); MPV 9.5 fL (8.0-11.0); Monocytes % 5.3; Neutrophils % 83.8; Nucleated RBC 0 %; Platelet Count 265 10^3/uL (130-400); RBC 3.76 10^6/uL (3.93-5.22); RDW-SD 45.8 fL; WBC 10.63 10^3/uL (4.4-10.8)
[2020-11-26 07:22] LABS: ALT 77 U/L (14-59); AST 55 U/L (15-37); Albumin 2.6 g/dL (3.4-5.0); Alkaline Phosphatase 473 U/L (46-116); Anion Gap 10.5 mmol/L (3-11); BUN 10 mg/dL (7-18); CO2 22.5 mmol/L (21.0-32.0); CREATININE 1.03 mg/dL (0.55-1.02); Chloride 109 mmol/L (98-107); Estimated GFR 52.98 (mL/min/1.73m2); Glucose 95 mg/dL (74-106); Potassium 3.6 mmol/L (3.5-5.1); Sodium 142 mmol/L (136-145); Total Protein 5.8 g/dL (6.4-8.2)
[2020-11-26] MEDS: Pantoprazole 40 MG VIAL IVP (08:00)
[2020-11-26] MEDS: Normal Saline Flush 10 ML SYR IVP ×4 (08:00→19:44)
[2020-11-26 08:06] VITALS: BP 138/78; PULSE 60; RESP 16; TEMP 37.2; O2SAT 96
--- NOTE | 2020-11-26 11:26 | W.PM.PROGNOT ---
Date of Service Date of service: 11/26/20 Time of Service: 11:26 Assessment and Plan Assessment and plan (1) Acute kidney injury: Status: Acute Assessment and plan: Creatinine continues to improve; 1.03. Maintaining adequate hydration with oral intake. Stop IV fluids now;will give IV fluids when NPO. (2) Hypertension: Status: Chronic Assessment and plan: Will restart Losartan, hold HCTZ. Monitor. (3) Hypothyroid: Status: Chronic Assessment and plan: Cont replacement tx. (4) Choledocholithiasis: Status: Acute Assessment and plan: Bilirubin continues to improve; now 2.0. No abd pain, N/V. Continue with plan for ERCP at [facility] tomorrow with possible d/c after she returns from the procedure. Will need gen surg consult as outpt to decide upon cholecystectomy given cholelithiasis and choledocolithiasis. Subjective Subjective Patient reports: no new complaints, tolerating a regular diet and afebrile; denies still having pain, nausea and vomiting Exam Const General: cooperative and no acute distress Resp Effort & Inspection: normal respiratory effort Auscultation: clear to auscultation bilaterally Cardio Rate: regular rate Rhythm: regular rhythm Heart Sounds: S1 normal and S2 normal GI Palpation: soft and nontender Auscultation: normal bowel sounds Extrem General: no pedal edema and no calf tenderness Objective Last Vital Signs Temp 37.2 C 11/26/20 08:06 Pulse 60 11/26/20 08:06 Resp 16 11/26/20 08:06 BP 138/78 11/26/20 08:06 Pulse Ox 96 11/26/20 08:06 Laboratory Results - last 24 hr 11/26/20 11/26/20 06:12 06:12 WBC 10.63 D RBC 3.76 L Hgb 11.3 Hct 33.8 L MCV 89.9 D MCH 30.1 MCHC 33.4 RDW 14.0 Plt Count 265 MPV 9.5 Immature Gran % 0.4 Neutrophils % 83.8 Lymphocytes % 9.4 Monocytes % 5.3 Eosinophils % 0.8 Basophils % 0.3 Nucleated RBC % 0 Absolute Neutrophils 8.91 H Absolute Lymphocytes 1.00 L Absolute Monocytes 0.56 Absolute Eosinophils 0.09 Absolute Basophils 0.03 Sodium 142 Potassium 3.6 Chloride 109 H Carbon Dioxide 22.5 Anion Gap 10.5 BUN 10 D Creatinine 1.03 H Estimated GFR/1.73 m2 52.98 Glucose 95 Calcium 8.0 L Total Bilirubin 2.0 H AST 55 H ALT 77 H Alkaline Phosphatase 473 H Total Protein 5.8 L Albumin 2.6 L
[2020-11-26] MEDS: Losartan 50 MG TAB PO (11:49)
[2020-11-26] MEDS: Ondansetron 4 MG/2 ML VIAL IVP (14:38)
[2020-11-26] MEDS: HYDROmorphone 2 MG/ML VIAL 0.5 MG IVP ×2 (14:54→19:43)
[2020-11-26 15:40] VITALS: BP 158/80; PULSE 89; RESP 19; TEMP 36.9; O2SAT 91
--- NOTE | 2020-11-26 16:16 | CMPROGNOTE_ITS ---
Care Management Progress Note S/O: Bailey remains stable and comfortable at this time; awaiting down and back to [facility] for ERCP-anticipated for tomorrow. CM continues to follow. A: 70 year old admitted to [facility] 11/24/19 for Choledocholithiasis P: Bailey is admitted for further monitoring, awaiting down and back to [facility] for an ERCP-anticipated on Friday, per provider. In the event Bailey's symptoms or status warrants, emergent transfer will be coordinated; she has been comfortable and stable thus far. CM continues to follow.
--- NOTE | 2020-11-26 16:16 | PDOC.CMPRO ---
Care Management Progress Note S/O: Bailey remains stable and comfortable at this time; awaiting down and back to [facility] [place] ERCP-anticipated for tomorrow. CM continues to follow. A: 70 year old admitted to [facility] 11/24/19 for Choledocholithiasis P: Bailey is admitted for further monitoring, awaiting down and back to [facility] for an ERCP-anticipated on Friday, per provider. In the event Bailey's symptoms or status warrants, emergent transfer will be coordinated; she has been comfortable and stable thus far. CM continues to follow.
[2020-11-26 23:59] VITALS: BP 133/72; PULSE 66; RESP 16; TEMP 36.2; O2SAT 97
[2020-11-27] MEDS: Normal Saline 1,000 ML 75 ML IV (01:54)
[2020-11-27] MEDS: Levothyroxine 88 MCG TAB PO (05:35)
[2020-11-27 08:00] VITALS: BP 125/71; PULSE 58; RESP 16; TEMP 36.8; O2SAT 96
[2020-11-27] MEDS: Pantoprazole 40 MG VIAL IVP (08:13)
[2020-11-27] MEDS: Normal Saline Flush 10 ML SYR IVP (08:13)
[2020-11-27] MEDS: Losartan 50 MG TAB PO (08:14)
[2020-11-27 11:07] LABS: Hepatitis A Antibody IgM Negative (Negative); Hepatitis B Core Antibody Negative (Negative); Hepatitis B surface Ag Negative (Negative); Hepatitis C Ab w Rflx HCV PCR Negative (Negative)
--- NOTE | 2020-11-27 15:41 | CMPROGNOTE_ITS ---
Care Management Progress Note S/O: Bailey was transported down and back to [facility] for an ERCP today. CM continues to follow. A: 70 year old admitted to [facility] 11/24/19 for Choledocholithiasis P: Bailey is admitted for further monitoring, awaiting down and back to [facility] for an ERCP scheduled for today. Anticipate she will return home when ready per MD, follow up with her PCP and plan of care as prescribed. CM continues to follow.
--- NOTE | 2020-11-27 15:41 | PDOC.CMPRO ---
Care Management Progress Note S/O: Bailey was transported down and back to [facility] for an ERCP today. CM continues to follow. A: 70 year old admitted to [facility] 11/24/19 for Choledocholithiasis P: Bailey is admitted for further monitoring, awaiting down and back to [facility] for an ERCP scheduled for today. Anticipate she will return home when ready per MD, follow up with her PCP and plan of care as prescribed. CM continues to follow.
--- NOTE | 2020-11-27 16:56 | PGE_ITS ---
Date of Service Date of service: 11/27/20 Time of Service: 16:56 Assessment and Plan Assessment and plan (1) Choledocholithiasis: Status: Acute Assessment and plan: Nursing report from [facility] stated the ERCP was completed; stones retrieved. Being transported back. Watch for pain, N/V, signs/symptoms of pancreatitis post-ERCP. Will need outpt surgical consult for possible cholecystectomy. Subjective Subjective Interval history since last seen: Pt voiced no new concerns to nursing. No N/V/abd pain. No F/C NPO for ERCP at [facility] Exam Narrative Exam Narrative: Exam deferred; patient transported to [facility] and had not returned by the time shift was over. Objective Last Vital Signs Temp 36.8 C 11/27/20 08:00 Pulse 58 L 11/27/20 08:00 Resp 16 11/27/20 08:00 BP 125/71 11/27/20 08:00 Pulse Ox 96 11/27/20 08:00 Laboratory Results - last 24 hr 11/24/20 11:00 Hepatitis A IgM Ab Negative Hep Bs Antigen Negative Hep B Core Total Ab Negative Hepatitis C Antibody Negative
--- NOTE | 2020-11-27 18:21 | NUR.NOTE ---
Nursing Note: pt left for [facility] at 1051 via ambulance for procedure. pts purse put into safe at nurses station. the plan is to have pt return to [facility] after procedure is done.
[2020-11-27 19:31] VITALS: BP 186/86; PULSE 68; RESP 18; TEMP 36.6; O2SAT 96
[2020-11-27 20:05] VITALS: BP 170/90
--- NOTE | 2020-11-27 22:15 | NUR.NOTE ---
Nursing Note: Pt arrived from [facility] 0n 19:25. Pt denies any chest pain/pressure and shortness of breath. Pt states shes feeling no pain.
[2020-11-27 23:27] VITALS: BP 155/83; PULSE 66; RESP 18; TEMP 37.1; O2SAT 96
--- NOTE | 2020-11-28 | DI.MRI_ITS ---
EXAM: MR ABDOMEN WO CLINICAL HISTORY: choledocolithiasis. S/P ERCP with stone removal TECHNIQUE: Multiplanar multisequence MRA of the Abdomen was performed. CONTRAST MATERIAL: IV Contrast: mL of Dotarem contrast administered. COMPARISON: CT CT ABDOMEN PELVIS W from 11/24/2020 FINDINGS: Liver: Unremarkable. Pancreas: Unremarkable. 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 It is adjacent to the head of the pancreas. Gallbladderand Bile Ducts: Multiple gallstones are present. There is extrahepatic biliary ductal dil atation measuring up to 1.1 cm. There is a tiny amount of air seen in the common bile duct likely re flecting the patient's recent ERCP.On the axial T2 images, there is a 2 mm hypointense focus in the m id common bile duct which may represent a retained stone versus artifact. (Series 3001, image 19). It is not appreciated on the coronal images. Adrenals: Unremarkable. Kidneys: Bilateral simple renal cysts. The largest is seen in the left kidney and measures 5 cm in d iameter. Spleen: Unremarkable. Aorta: No aneurysmal dilatation. Soft Tissues: Unremarkable. Bone: Unremarkable. Lymph Nodes: Unremarkable. IMPRESSION: 1. Status post ERCP with removal of the obstructing common bile duct stone. 2. Interval decrease in size of the extrahepatic and intrahepatic bile ducts. 3. Cholelithiasis. 4. 2 mm hypointense focus in the mid common bile duct. This may represent artifact versus a retained stone. DATA REPOSITORY:
[2020-11-28] MEDS: Levothyroxine 88 MCG TAB PO (05:58)
[2020-11-28 07:18] VITALS: BP 135/83; PULSE 60; RESP 18; TEMP 37; O2SAT 96
[2020-11-28] MEDS: Losartan 50 MG TAB PO (08:24)
[2020-11-28] MEDS: Pantoprazole 40 MG VIAL IVP (08:25)
[2020-11-28] MEDS: Normal Saline Flush 10 ML SYR IVP (08:26)
[2020-11-28 09:35] LABS: ALT 59 U/L (14-59); AST 29 U/L (15-37); Albumin 2.7 g/dL (3.4-5.0); Alkaline Phosphatase 441 U/L (46-116); Anion Gap 8.5 mmol/L (3-11); BUN 8 mg/dL (7-18); CO2 26.5 mmol/L (21.0-32.0); CREATININE 1.06 mg/dL (0.55-1.02); Calcium 8.4 mg/dL (8.5-10.1); Chloride 104 mmol/L (98-107); Estimated GFR 51.25 (mL/min/1.73m2); Glucose 111 mg/dL (74-106); Potassium 3.5 mmol/L (3.5-5.1); Sodium 139 mmol/L (136-145)
[2020-11-28] MEDS: LORazepam 0.5 MG TAB PO (11:28)
--- NOTE | 2020-11-28 12:49 | W.PM.DS.N ---
Date of service: 11/28/20 Time of Service: 12:49 DS: Diagnosis Discharge Diagnosis (1) Choledocholithiasis: Status: Acute Discharge Plan Disposition Patient Disposition: HOME Condition: Good Discharge Details Reason For Visit: CHOLEDOCHOLITHIASIS Admit Date/Time: 11/24/20 14:10 Admit Provider: Caleb Rojas Attending Provider: Caleb Rojas Primary Care Provider: Chely Michelle Hospital Course Hospital Course: This is a 70-year-old female with a past medical history of hypertension, hypothyroidism, colectomy and appendectomy, who presented to the ED with a chief complaint of nausea and vomiting associated with eating and radha colored stools. Symptoms have been ongoing for approximately 1 month. She saw her primary care provider who checked oupatient labs on November 22, 2020 which showed elevated liver enzymes and elevated lipase. She was referred for a CT abdomen pelvis. She reported weight loss approximately 10 pounds. Denieed any chest pain, shortness of breath, dysuria, fever chills or any other complaints. On initial exam patient appears jaundiced with scleral icterus. Her abdomen was soft and nontender on ED arrival. Work up showed choledocholithiasis. Her case was discussed with GI at [facility] and beds are not available for transfer for ERCP. She remained at [facility] over the weekend. Her condition improved significantly with her bilirubin decrease from 6 to 2. She tolerted a low fat diet. On 11/27/2020 she was transported to [facility] for ERCP with clearance of multiple stones and sphincterotomy. She returned to [facility] and felt well; no abd pain, N/V. She tolerated a low fat diet. An MRCP was performed with the following findings: 1. Status post ERCP with removal of the obstructing common bile duct stone. 2. Interval decrease in size of the extrahepatic and intrahepatic bile ducts. 3. Cholelithiasis. 4. 2 mm hypointense focus in the mid common bile duct. This may represent artifact versus a retained stone. She will f/u as an outpatient with general surgery to plan a cholecystectomy. A low fat diet was recommended. She will f/u with her PCP in 1-2 weeks. Home Meds and New Rx's Prescriptions: Continued multivitamin Capsule 1 cap PO DAILY RF: 0 levothyroxine 88 mcg capsule 88 mcg PO DAILY RF: 0 calcium carbonate-vitamin D3 [Calcium with Vitamin D] 600 mg(1,500mg) -400 unit tablet 1 tab PO DAILY RF: 0 aspirin [Adult Aspirin Regimen] 81 mg tablet,delayed release (DR/EC) 81 mg PO DAILY RF: 0 losartan-hydrochlorothiazide 100-25 mg tablet 1 tab PO DAILY RF: 0 ondansetron HCl 4 mg tablet 4 mg PO Q6H PRN PRNRF: 0 Discharge Instructions Instructions: Gallstones (GEN) Referrals: Karen Bowles DO [OSTEOPATHIC DOCTOR] - (Cholelithiasis. Choledocolithiasis s/p ERCP with clearance of multiple stones and sphincterotomy.) Activity:: Activity as Tolerated Equipment/Supplies:: No Equipment Needed Diet:: Low Fat Discharge Orders Discharge Orders: Discharge Order (Routine); Ordered 11/28/20 Ordered By: Steve Mascorro DS: Summary Status at Discharge Functional status at discharge: independent ambulation Overall status at discharge: patient is back to baseline Mental Status: mental status grossly normal Speech and Movement: speech and movement normal Mood: congruent mood Affect: normal affect Exam Const General: cooperative Nutritional Appearance: thin Orientation: alert and oriented x3 Eyes General: appearance normal, both eyes and all related structures Sclera: sclerae normal Neck Neck: full ROM and no JVD Resp Effort & Inspection: normal respiratory effort Auscultation: clear to auscultation bilaterally Cardio Rate: regular rate Rhythm: regular rhythm Heart Sounds: S1 normal and S2 normal GI Palpation: soft and nontender Extrem General: no pedal edema and no calf tenderness Psych Mental Status: mental status grossly normal Speech and Movement: speech and movement normal Mood: congruent mood Affect: normal affect DS: Data Vitals/I&O Vitals and I&O: Vital Signs Temperature 37.0 C 11/28/20 07:18 Temperature Source Temporal Artery Scan 11/28/20 07:18 Pulse 60 11/28/20 07:18 Pulse Rhythm Regular 11/28/20 08:25 Respiratory Rate 18 11/28/20 07:18 Respiratory Effort Non-Labored 11/28/20 08:25 Respiratory Depth Normal 11/28/20 08:25 Respiratory Pattern Normal 11/28/20 08:25 Blood Pressure 135/83 11/28/20 07:18 Blood Pressure Position Sitting 11/24/20 10:52 Pulse Oximetry 96 11/28/20 07:18 Oxygen Delivery Method Room Air 11/28/20 07:18 Oxygen Flow Rate 0 11/28/20 07:18 Pain Level 0 11/28/20 07:18 Comment 11/25/20 08:47 Intake & Output 11/27/20 11/28/20 11/28/20 23:59 11:59 23:59 Intake Total 0 / 0 Output Total 300 / 800 200 / 200 Balance -300 / -110 -200 / -200 Weight 57.3 kg Intake: IV 0 / 0 Output: Urine 300 / 800 200 / 200 Other: Urine Color Dark Inocencia Yellow Urine Appearance Clear Clear Urine Odor Normal Normal Voiding Methods Toilet Toilet Data Completed and Pending Labs on day of discharge: Labs from last 24 hours 11/28/20 08:51 Sodium 139 Potassium 3.5 Chloride 104 Carbon Dioxide 26.5 Anion Gap 8.5 BUN 8 Creatinine 1.06 H Estimated GFR/1.73 m2 51.25 Glucose 111 H Calcium 8.4 L Total Bilirubin 2.0 H AST 29 ALT 59 Alkaline Phosphatase 441 H Total Protein 6.0 L Albumin 2.7 L PFSH Medical History Elevated LFTs Hyperlipidemia Hypertension Hypothyroid Impaired fasting glucose Neuropathy Seborrheic keratoses Social History Smoking/Tobacco Use Status: Never Smoking risk assessment performed?: Yes Alcohol Intake: current Alcohol Intake frequency: holidays/special occasions only Drug use: Never Substance use type: does not use Do you feel safe at home: Yes Do you feel safe in your relationship?: Yes
--- NOTE | 2020-11-28 15:12 | CHAPLAIN ---
Bialey went to [facility] [place] [place] yesterday for a procedure and got about about 7 p.m., she said. She also found out she will need her gall bladder taken out, but that can be done here. She is hoping to go home today, have a shower and a nap, she said.
[2020-11-28 15:24] VITALS: BP 149/84; PULSE 71; RESP 18; TEMP 36.8; O2SAT 98
--- NOTE | 2020-11-28 15:37 | W.NUTCONSULT ---
Date of service: 11/28/20 Time of Service: 15:38 Nutritional Consult ASSESSMENT: 70 year old female awaiting lap jimmy with PMH: bone cancer, HTN with 10 lbs weight loss in last week due to poor intake. BMI wnl. Has been NPO x 2 days. Diet to be advanced as tolerated/s/p surgery. Labs indicate elevated liver enzymes and lipase with low albumin putting her at risk for poor visceral protein stores. Pt at nutritional risk at this time. Will continue to follow. INTERVENTION: advance diet as tolerated if unable to advance diet for > 5 days, consider nutrition support MONITORING AND EVALUATION: will conitnue to follow and make warranted recommendations for optimal nutritional intake in view of complications Time Spent in Nutritional Counseling and Treatment: 0
--- NOTE | 2020-11-28 20:04 | PDOC.CMDIS ---
- If Service Date Differs Date of service: 11/28/20 Time of Service: 20:04 LACE Index Scoring Tool - Questions: Length of Stay (in days): 4 - 6 Acuity (Admit via E.D.?): Yes E.D. Visits: 1 - Answers: Total Score: 8 Risk of Readmission: Low Risk Care Management Discharge Reason for Hospitalization: Choledocholithiasis Discharge Plan: Bailey will return home today with no additional services. She will have her gallbladder removed as an out patient procedure. She will be driven home via private vehicle by family. She will follow up with her surgeon, PCP and discharge plan of care. She is happy to be going home. Patient/Family Education Needs: Review discharge instructions regarding diet, medications and activity levels; discussion of self care needs.
== END 2020-11-28 16:02 | disposition home or self-care (01) | DRG 445 ==
LOC: ER 14:35 → MS 15:39
PROVIDERS: Family Medicine; Nurse Practitioner Acute Care; Admitting Provider Internal Medicine; Emergency Provider Registered Nurse Emergency; PCP Physician Assistant Medical; Visit Provider Internal Medicine
DX: K80.70 Calculus of gallbladder and bile duct without cholecystitis without obstruction (principal); N17.9 Acute kidney failure, unspecified; I10 Essential (primary) hypertension; E03.9 Hypothyroidism, unspecified; Z98.0 Intestinal bypass and anastomosis status; R73.01 Impaired fasting glucose; G62.9 Polyneuropathy, unspecified; E78.5 Hyperlipidemia, unspecified
CPT/HCPCS: 36410; 36415; 43262; 80053; 83690; 86704; 86709; 86803; 87340; 96361; 96374; 99222; 99231; 99232; 99239; 99285; 74177; 74181; 76700; 81003; 81015; 82248; 83735; 85025; 85610; 99284; A0425; A0428; A0429; J2405; J3490

== ENCOUNTER → 2020-12-07 09:49 | Outpatient (BNVA) | payer MEDICARE, OTHER, SELFPAY | PROVIDERS: PCP Physician Assistant Medical; Referring Provider Physician Assistant Medical; Visit Provider Surgery | DX: K80.50 Calculus of bile duct without cholangitis or cholecystitis without obstruction (principal); R17 Unspecified jaundice | CPT/HCPCS: 99203; 99214 ==

== ENCOUNTER 2020-12-11 23:20 | Outpatient (REF) | payer MEDICARE, OTHER, SELFPAY ==
[2020-12-11 20:45] LABS: ALT 33 U/L (14-59); AST 25 U/L (15-37); Alkaline Phosphatase 230 U/L (46-116); BUN 14 mg/dL (7-18); Bilirubin, Total 0.6 mg/dL (0.2-1.0); CREATININE 0.9 mg/dL (0.55-1.02); Calcium 9.6 mg/dL (8.5-10.1); Chloride 105 mmol/L (98-107); Glucose 95 mg/dL (74-106); Lipase 311 U/L (73-393); Potassium 5.4 mmol/L (3.5-5.1); Sodium 141 mmol/L (136-145); Total Protein 7.4 g/dL (6.4-8.2)
== END 2020-12-11 23:40 ==
LOC: NCHCN 23:20
PROVIDERS: PCP Physician Assistant Medical; Visit Provider Physician Assistant Medical
DX: K80.50 Calculus of bile duct without cholangitis or cholecystitis without obstruction (principal)
CPT/HCPCS: 80053; 83690

== ENCOUNTER 2020-12-20 02:11 | Outpatient (CLI) | payer MEDICARE, OTHER, SELFPAY ==
--- NOTE | 2020-12-20 09:00 | DI.MRI_ITS ---
EXAM: MR ABDOMEN WO CLINICAL HISTORY: S/P ERCP,CHOLEDOCHOLITHIASIS,K80.50 TECHNIQUE: Multiplanar multisequence MRA of the Abdomen was performed. COMPARISON: CT CT ABDOMEN PELVIS W from 11/18/[address] ABDOMEN PELVIS W from 11/18/[address] ABDOMEN PELVIS W from 11/24/[address] ABDOMEN PELVIS W from 11/24/2020 MR MR ABDOMEN WO from 11/28/2020 MR MR ABDOMEN WO from 11/28/2020 FINDINGS: Exam is limited by patient motion. Multiple gallstones are again noted. No mass is visible. There is no wall thickening or surrounding inflammation. No common duct stone is identified. The common b ile duct is again noted to be dilated, measuring 10 millimeters. There is also stable mild dilatatio n of the pancreatic duct. A duodenal diverticulum is again noted in the descending portion. The kruse creas and adrenals are unremarkable. Multiple bilateral renal cysts are again noted. The spleen nav ears normal. No pleural effusions are seen at the lung bases. IMPRESSION: Limited exam due to motion. Stable dilatation of the common duct at 10 millimeters. No obstructing stone is visible however a small stone would be hard to exclude. Cholelithiasis. Duodenal diverticu lum. DATA REPOSITORY:
== END 2020-12-20 02:12 ==
LOC: DI 02:11
PROVIDERS: PCP Physician Assistant Medical; Visit Provider Surgery
DX: K80.50 Calculus of bile duct without cholangitis or cholecystitis without obstruction (principal)
CPT/HCPCS: 74181

== ENCOUNTER 2020-12-20 02:56 | Outpatient (CLI) | payer MEDICARE, OTHER, SELFPAY ==
[2020-12-20 09:48] LABS: Abs Immature Grans 0.01 10^3/uL (0.0-0.06); Absolute Basophil Count 0.05 10^3/uL (0.0-0.2); Absolute Eosinophil Count 0.11 10^3/uL (0.0-0.7); Absolute Lymphocyte Count 1.59 10^3/uL (1.2-3.4); Absolute Monocyte Count 0.49 10^3/uL (0.1-0.8); Absolute Neutrophil Count 3.87 10^3/uL (1.2-6.7); Basophils % 0.8; Eosinophils % 1.8; HCT 39.3 % (36.0-46.0); HGB 13.1 g/dL (11.2-15.7); Immature Grans % 0.2; MCH 30.4 pg (27.0-33.0); MCHC 33.3 % (32.0-36.0); MCV 91.2 fL (80-95); MPV 9.2 fL (8.0-11.0); Neutrophils % 63.2; Nucleated RBC 0 %; Platelet Count 216 10^3/uL (130-400); RBC 4.31 10^6/uL (3.93-5.22); RDW 12.9 % (11.7-14.6); RDW-SD 42.8 fL; WBC 6.12 10^3/uL (4.4-10.8)
[2020-12-20 10:29] LABS: ALT 24 U/L (14-59); AST 20 U/L (15-37); Albumin 3.9 g/dL (3.4-5.0); Alkaline Phosphatase 173 U/L (46-116); Anion Gap 9.5 mmol/L (3-11); BUN 18 mg/dL (7-18); Bilirubin, Total 0.7 mg/dL (0.2-1.0); CO2 27.5 mmol/L (21.0-32.0); Calcium 9.2 mg/dL (8.5-10.1); Chloride 104 mmol/L (98-107); Estimated GFR 54.81 (mL/min/1.73m2); Glucose 101 mg/dL (74-106); Lipase 194 U/L (73-393); Potassium 4.2 mmol/L (3.5-5.1); Sodium 141 mmol/L (136-145); Total Protein 7.2 g/dL (6.4-8.2)
== END 2020-12-20 02:57 | disposition home or self-care (01) ==
LOC: LBO 02:56
PROVIDERS: PCP Physician Assistant Medical; Visit Provider Surgery
DX: K80.50 Calculus of bile duct without cholangitis or cholecystitis without obstruction (principal); R17 Unspecified jaundice
CPT/HCPCS: 36415; 80053; 83690; 74181; 85025; 85610

== ENCOUNTER 2020-12-22 11:22 | Outpatient (CLI) | payer MEDICARE, OTHER, SELFPAY ==
[2020-12-23 17:05] LABS: COVID-19 RT-PCR UVMMC Result Negative (Negative)
== END 2020-12-22 11:23 | disposition home or self-care (01) ==
LOC: LBO 11:23
PROVIDERS: PCP Physician Assistant Medical; Visit Provider Surgery
DX: Z20.822 Contact with and (suspected) exposure to COVID-19 (principal); Z01.818 Encounter for other preprocedural examination
CPT/HCPCS: U0003; U0005

== ENCOUNTER 2020-12-26 10:59 | Inpatient (IN) | payer MEDICARE, OTHER, SELFPAY ==
[2020-12-26] VITALS (13 sets, daily range): BP systolic 106–156; BP diastolic 63–81; PULSE 66–89; RESP 13–20; TEMP 36–36.7; O2SAT 94–99
[2020-12-26] MEDS: Acetaminophen 500 MG TAB 1000 MG PO ×3 (07:23→23:03)
[2020-12-26] MEDS: Gabapentin 300 MG CAP PO (07:24)
[2020-12-26] MEDS: Lactated Ringers 1,000 ML 80 ML IV (07:35)
[2020-12-26] MEDS: ceFAZolin 1 GM/50 ML BAG IVPB (07:53)
[2020-12-26] MEDS: Bupivacaine 0.25% Pres-Free 30 ML VIAL (08:08)
[2020-12-26] MEDS: levoFLOXacin 750 MG/150 ML BAG 100 MG IVPB (08:50)
--- NOTE | 2020-12-26 09:43 | GB_PTH ---
PATIENT: Bailey Jackson LOC: U#:[id number] AGE/SX: 70/F ROOM: [id number] RE12/26/[address]: Karen Bowles : 1950 BED: A DIS: 12/29/2020 SPEC #: [id number] RECD: 12/26/20 12:37 STATUS: MOSHE REQ #: [id number] KAYLIN: 12/26/20 09:[address]: Karen Bowles DEPT: Surgical Specimen RECD BY: Aniyah Turner ENTERED: 12/26/20 12:37 SP TYPE: GB OTHR DR: Chely Michelle Tissues: 1 - GALLBLADDER Procedures: GROSS AND MICRO LEVEL 3 Comments: [id number]
[2020-12-26] MEDS: Cellulose,Oxidized 4X8 1 PACKET MC (09:52)
--- NOTE | 2020-12-26 10:55 | W.PM.OP ---
Date of service: 12/26/20 Time of Service: 10:56 Operative Note Operative Note DATE OF PROCEDURE: 12/26/20 PRE-OP DIAGNOSIS: cholelithiasis POST-OP DIAGNOSIS: other (subacute cholecystitis) PROCEDURE: lap jimmy SURGEON: Mile Faria CONVERTER OPERATOR: Altagracia Chin ANESTHESIA TYPE: Local By Surgeon Refer to Anesthesia Record ESTIMATED BLOOD LOSS: 100 PATHOLOGY: other COMPLICATIONS: None Patient was transported to: PACU Patient's condition: stable Procedure Description: CHOLECYSTECTOMY POST-OPERATIVE REPORT INDICATIONS: The pt is seen at the request of there PCP regarding acute on chronic cholecystitis, cholelithiasis. The pt had CBD stones adn had ERCP and spincherotomy w/ stone removal, and is here today for laparoscopic cholecystectomy. Her repeat MRCP showed dilated CBD still (10cm) but no stones. Informed consent was obtained, explaining risks and benefits of the procedure including but not limited to bleeding, infection, pneumonia, blood clots, possible damage to bowel, bladder, blood vessels, bile ducts, possible open procedure, complications of general anesthesia and other unforetold complications. PROCEDURE: The patient agrees and is brought to the operative room suite and placed in supine position. Anesthesia was administered per the Department of Anesthesia. The patient did receive IV antibiotics. NG tube and Andujar catheter are placed. The patient was prepped and draped in the usual sterile fashion using DuraPrep scrub solution. Pause for the cause was done. 20 mL of 1% buffered lidocaine was used for local anesthetization. Pt has had a previous colon resection adn vertical midline incision- so cutdown was done and Mone placed. A finger was sept in the incision- there are no abdominal adhesions. The camera was inserted through the port and shows no damage to underlying structures. A 10 mm port was then placed in the epigastric position under direct visualization following creation of local field blocks as well as two 5 mm ports in the right upper quadrant. The gallbladder fundus was grasped and retracted towards the right shoulder. Infundibulum was grasped and retracted laterally. The GB was on a long mesentery adn quite floppy. It is full of stones. The cystic duct is at least 1.5cm. The hepat-duodenal ligament is entered. The ligament is very woody and difficult to dissect through. The The cystic duct and artery are dissected out and the most inferior portion of the gallbladder plate is removed from the liver and the critical view of safety was obtained after clearing away all fatty material. Endo Clips were placed across the duct and artery and these structures are divided. The remainder of the gallbladder was excised from the liver bed. The gallbladder was placed in a bag and brought out. Examination of the gallbladder shows indeed the cystic duct and artery to have been divided. The remainder of the abdomen was copiously irrigated with a liter of saline. All saline is removed. There is no bleeding or bile leakage from the liver bed or the clips sites. An EndoClose needle was used to close the 10 mm port site with an 0 Vicryl. All ports and instruments are removed. SPonge and needle counts are correct. Pneumoperitoneum is evacuated and the port sites are monitored to make sure there is no bleeding at the time of desufflation. Port sites are irrigated and the skin is closed with 4-0 Monocryl in a running subcuticular fashion. Skin glue sterile dressings are applied. The patient tolerated the procedure well without complications, transferred to the recovery room in stable condition. MILE FARIA DO
[2020-12-26] MEDS: fentaNYL 100 MCG/2 ML VIAL IVP ×3 (11:30→11:50)
[2020-12-26] MEDS: Normal Saline 1,000 ML 125 ML IV (14:17)
[2020-12-26] MEDS: traMADol 50 MG TAB PO (14:17)
--- NOTE | 2020-12-26 16:52 | W.PM.PROGNOT ---
Date of Service Date of service: 12/26/20 Time of Service: 16:52 Assessment and Plan Assessment and plan (1) Cholelithiasis with acute cholecystitis: Status: Acute Assessment and plan: The patient is doing well post-op. There pain is well controlled. They are having no nausea or vomiting. The pt is not having any chest pain or SOB, productive cough; no calf pain or swelling. The pt is making good urine. The pt pain is adequately controlled. The case was discussed with nursing and patients progress reviewed. All of the pt's home medications were addressed and adjusted accordingly for their oral intact status. She has been up walking around. She has some mild Right shoulder pain. The fluid in drain is serous-sang only. HEENT: no janudice. no eye pain/drainage/redness/swelling. mild sore throat cardio- NSR no chest pain, BP stable. pulm: no sob or productive cough. no hemoptysis incision- clean/dry. dressing intact no excessive bleeding or drainage I discussed with the patient and/or there family about the findings in surgery and the pt's progress. We reviewed expectations for progress in the hospital; what the pt could expect for recovery time and length of stay. We discussed the importance of walking and pulmonary toilet to avoid blood clots and pneumonia. Continue current plans for pulmonary toilet, GI and DVT prophylaxis. We shall continue the current plan for pain management as it is at an appropriate level and working well for the pt. Appropriate measures will be taken for constipation prevention as well, and this was also reviewed with the pt. wound care plan was reviewed with nursing as well. -pt did have purulent discharge from the GB at the time of surgery. She received levaquin in the OR. PreOp labs were nl. I would like to keep her in the hosp for 48hrs on IV abx. Pt has high risk for postOP bile leak. Will continue to monitor for bile leak. She had an ERCP last month and spinchterotomy but no stent. see orders (2) Hypertension: Status: Chronic (3) Hypothyroid: Status: Chronic (4) Choledocholithiasis: Status: Acute Objective Last Vital Signs Temp 36.5 C 12/26/20 16:31 Pulse 89 12/26/20 16:31 Resp 18 12/26/20 16:31 BP 156/81 H 12/26/20 16:31 Pulse Ox 94 12/26/20 16:31
[2020-12-27 00:23] VITALS: BP 117/66; PULSE 85; RESP 17; TEMP 27.1; O2SAT 95
[2020-12-27] MEDS: Normal Saline 1,000 ML 50 ML IV ×2 (05:00→21:50)
[2020-12-27 07:11] LABS: Abs Immature Grans 0.05 10^3/uL (0.0-0.06); Absolute Basophil Count 0.03 10^3/uL (0.0-0.2); Absolute Eosinophil Count 0.04 10^3/uL (0.0-0.7); Absolute Monocyte Count 0.94 10^3/uL (0.1-0.8); Absolute Neutrophil Count 10.68 10^3/uL (1.2-6.7); Basophils % 0.2; Eosinophils % 0.3; HCT 33.4 % (36.0-46.0); Immature Grans % 0.4; Lymphocytes % 12.8; MCH 29.8 pg (27.0-33.0); MCHC 32.9 % (32.0-36.0); MCV 90.5 fL (80-95); MPV 10.4 fL (8.0-11.0); Neutrophils % 79.3; Nucleated RBC 0 %; RBC 3.69 10^6/uL (3.93-5.22); RDW 13.2 % (11.7-14.6); RDW-SD 43.4 fL; WBC 13.47 10^3/uL (4.4-10.8)
[2020-12-27 07:14] LABS: Absolute Lymphocyte Count 1.72 10^3/uL (1.2-3.4)
[2020-12-27 07:17] LABS: ALT 21 U/L (14-59); AST 29 U/L (15-37); Albumin 2.8 g/dL (3.4-5.0); Alkaline Phosphatase 106 U/L (46-116); Anion Gap 7.6 mmol/L (3-11); BUN 17 mg/dL (7-18); Bilirubin, Total 0.9 mg/dL (0.2-1.0); CO2 25.4 mmol/L (21.0-32.0); CREATININE 1.2 mg/dL (0.55-1.02); Calcium 8.9 mg/dL (8.5-10.1); Chloride 106 mmol/L (98-107); Estimated GFR 44.41 (mL/min/1.73m2); Glucose 107 mg/dL (74-106); Potassium 4.6 mmol/L (3.5-5.1); Sodium 139 mmol/L (136-145); Total Protein 6.1 g/dL (6.4-8.2)
[2020-12-27 07:36] LABS: Diff Comment PLT Morph Reviewed; RBC Morphology Normal
[2020-12-27 07:56] VITALS: BP 123/74; PULSE 72; RESP 19; TEMP 37.2; O2SAT 92
[2020-12-27] MEDS: Acetaminophen 500 MG TAB 1000 MG PO ×3 (08:09→23:12)
--- NOTE | 2020-12-27 10:10 | W.PM.PROGNOT ---
Date of Service Date of service: 12/27/20 Time of Service: 10:10 Assessment and Plan Assessment and plan (1) Cholelithiasis with acute cholecystitis: Status: Acute Assessment and plan: POD #1 s/p Lap. Cholecystectomy. The patient continues to be doing well. Pain well controlled. No bile noted in drain. Continue to progress diet to post-op low fat diet. Denies any fevers or chills. D/C home later today if she continues to be feeling well. (2) Hypertension: Status: Chronic (3) Hypothyroid: Status: Chronic (4) Choledocholithiasis: Status: Acute Subjective Subjective Interval history since last seen: Patient reports feeling well this morning. She reports mild abdominal tenderness. Denies any nausea or vomiting. Exam Const General: cooperative, healthy appearing and comfortable Orientation: alert and oriented x3 Resp Effort & Inspection: normal respiratory effort, no audible wheezes and no cough GI Inspection: normal to inspection Palpation: soft, no guarding and nontender Other: Drain with bloody, serous drainage. Objective Last Vital Signs Temp 37.2 C 12/27/20 07:56 Pulse 72 12/27/20 07:56 Resp 19 12/27/20 07:56 BP 123/74 12/27/20 07:56 Pulse Ox 92 12/27/20 07:56 Laboratory Results - last 24 hr 12/27/20 12/27/20 06:50 06:50 WBC 13.47 H RBC 3.69 L Hgb 11.0 L Hct 33.4 L MCV 90.5 MCH 29.8 MCHC 32.9 RDW 13.2 Plt Count MPV 10.4 Immature Gran % 0.4 Neutrophils % 79.3 Lymphocytes % 12.8 Monocytes % 7.0 Eosinophils % 0.3 Basophils % 0.2 Nucleated RBC % 0 Absolute Neutrophils 10.68 H Absolute Lymphocytes 1.72 Absolute Monocytes 0.94 H Absolute Eosinophils 0.04 Absolute Basophils 0.03 RBC Morphology Normal Sodium 139 Potassium 4.6 Chloride 106 Carbon Dioxide 25.4 Anion Gap 7.6 BUN 17 Creatinine 1.2 H Estimated GFR/1.73 m2 44.41 Glucose 107 H Calcium 8.9 Total Bilirubin 0.9 AST 29 ALT 21 Alkaline Phosphatase 106 Total Protein 6.1 L Albumin 2.8 L
[2020-12-27] MEDS: traMADol 50 MG TAB PO ×2 (10:19→21:50)
[2020-12-27 15:40] VITALS: BP 145/87; PULSE 78; RESP 18; TEMP 37.4; O2SAT 94
--- NOTE | 2020-12-27 17:48 | INITIAL_ITS ---
- If Service Date Differs Date of service: 12/27/20 Time of Service: 17:48 Care Management Initial Assess REASON FOR HOSPITALIZATION:: Cholelithiasis PAST MEDICAL HISTORY/PAST SURGICAL HISTORY:: Elevated LFTs, hyperlipidemia, hypertension, hypothyroid, impaired fasting glucose, neuropathy, seborrheic keratoses PREVIOUS FUNCTIONAL STATUS/SOCIAL/FAMILY SUPPORTS:: Bailey resides with her , Adonis in [place], [place]. She is independent at baseline in the community. CURRENT FUNCTIONAL STATUS:: Bailey was sleeping when CM attempted to meet with her. She was arousable, but not engaged in conversation. CM chose to let her rest. Per report, Bailey is doing well post surgically and may be ready for discharge later today, if she continues to improve. CM will continue to follow. ADVANCE DIRECTIVES:: None on file. CM will offer forms if Bailey remains inpatient tomorrow. Has patient been provided with info about the portal/API?: No Did the patient sign up for the portal?: No CODE STATUS:: Full Code INSURANCE COVERAGE / FINANCIAL ISSUES:: [facility]/ [employer] [place] CURRENT HOME/COMMUNITY SERVICES/EQUIPMENT:: Bailey has a hand held shower. No services in the community. PRIMARY CARE PHYSICIAN:: Chely Michelle, [facility] POTENTIAL DISCHARGE NEEDS:: Follow up appointments. PATIENT/FAMILY EDUCATION NEEDS:: Review instructions, discuss self care needs upon discharge, Ask Me Three. ANTICIPATED BARRIERS TO DISCHARGE:: None identified. TRANSPORTATION:: Private vehicle with family. PLAN:: Anticipate Bailey will return home when medically cleared with no new services. She will follow up with her PCP and discharge plan of care. Her will drive her home via private vehicle. CM will continue to follow.
[2020-12-27 23:05] VITALS: BP 167/88; PULSE 90; RESP 17; TEMP 38; O2SAT 95
--- NOTE | 2020-12-28 | DI.RAD_ITS ---
EXAM: XR CHEST 2V PA LATERAL CLINICAL HISTORY: postOp fever. TECHNIQUE: 2D digital imaging was performed. COMPARISON: CR LEFT RIBS PA CXR ONLY-3VIEWS from 06/28/2013 FINDINGS: Heart size is normal. The mediastinum is not widened. There is some elevation of the right hemidiaphragm which appears to be related to an enlarged air-jamar led bowel loop subjacent to the right hemidiaphragm. There also clips and a drain at this level note d. Mild infiltrate is noted in right lung base as well as atelectasis and mild infiltrate in the opp osite-left lung base. There are no large pleural effusions. There is no pneumothorax. IMPRESSION: Bibasilar infiltrates and atelectasis.. Elevated right hemidiaphragm. Dilated air-filled viscus in the right upper quadrant subjacent to the right hemidiaphragm. No large pleural effusions. Multiple surgical clips are noted in the right upper quadrant of the abdomen and also a drain at this level is seen. DATA REPOSITORY: RADIATION DOSE DELIVERED:
[2020-12-28 00:12] VITALS: TEMP 37.5
[2020-12-28 07:05] LABS: Abs Immature Grans 0.06 10^3/uL (0.0-0.06); Absolute Eosinophil Count 0.24 10^3/uL (0.0-0.7); Absolute Lymphocyte Count 1.27 10^3/uL (1.2-3.4); Absolute Monocyte Count 1.16 10^3/uL (0.1-0.8); Basophils % 0.3; Eosinophils % 1.6; HCT 33.5 % (36.0-46.0); HGB 11.2 g/dL (11.2-15.7); Immature Grans % 0.4; Lymphocytes % 8.3; MCH 30.2 pg (27.0-33.0); MCHC 33.4 % (32.0-36.0); MCV 90.3 fL (80-95); MPV 9.3 fL (8.0-11.0); Monocytes % 7.6; Neutrophils % 81.8; Nucleated RBC 0 %; Platelet Count 191 10^3/uL (130-400); RBC 3.71 10^6/uL (3.93-5.22); RDW 13.4 % (11.7-14.6); RDW-SD 43.9 fL; WBC 15.28 10^3/uL (4.4-10.8)
[2020-12-28 07:08] LABS: Absolute Basophil Count 0.05 10^3/uL (0.0-0.2)
[2020-12-28 07:18] LABS: ALT 21 U/L (14-59); AST 20 U/L (15-37); Albumin 2.7 g/dL (3.4-5.0); Alkaline Phosphatase 112 U/L (46-116); Anion Gap 6.5 mmol/L (3-11); BUN 11 mg/dL (7-18); CO2 27.5 mmol/L (21.0-32.0); CREATININE 0.9 mg/dL (0.55-1.02); Calcium 8.6 mg/dL (8.5-10.1); Chloride 105 mmol/L (98-107); Glucose 109 mg/dL (74-106); Potassium 3.9 mmol/L (3.5-5.1); Sodium 139 mmol/L (136-145)
[2020-12-28 07:36] VITALS: BP 156/81; PULSE 82; RESP 16; TEMP 37.1; O2SAT 95
[2020-12-28] MEDS: traMADol 50 MG TAB PO ×3 (08:54→22:46)
[2020-12-28] MEDS: Ondansetron 4 MG/2 ML VIAL IVP (08:54)
[2020-12-28] MEDS: Normal Saline Flush 10 ML SYR IVP (08:55)
[2020-12-28] MEDS: Acetaminophen 500 MG TAB 1000 MG PO ×2 (08:55→15:40)
[2020-12-28] MEDS: levoFLOXacin 750 MG/150 ML BAG 100 MG IVPB (09:23)
[2020-12-28 09:37] LABS: Bilirubin Negative (Negative); Blood Trace-intact (Negative); Clarity Clear (Clear); Glucose Negative (Negative); Ketones Negative (Negative); Leukocyte Esterase Negative (Negative); Nitrite Negative (Negative); Specific Gravity >= 1.030 (1.005-1.025); Urobilinogen 0.2 EU/dL (Up TO 0.2); pH 5.5 (5-8)
[2020-12-28 09:48] LABS: Bacteria Rare HPF (Negative); C & S Indicated? No; Casts Negative LPF (Negative); Crystals Negative HPF (Negative); Epithelial Cells Rare HPF (Negative); Mucus Trace (Negative); RBC 0-2 HPF (0-2); WBC 0-2 HPF (0-5)
[2020-12-28 11:06] LABS: C-Reactive Protein 23.01 mg/dL (0.0-0.3)
[2020-12-28 11:30] LABS: D-Dimer 2768 ng/mlFEU (<500)
[2020-12-28] MEDS: Magnesium Citrate 300 ML BTL 150 ML PO (13:09)
[2020-12-28 13:35] VITALS: BP 133/80; PULSE 87; RESP 16; TEMP 36.6; O2SAT 96
[2020-12-28 15:24] VITALS: BP 132/85; PULSE 83; RESP 16; TEMP 36.7; O2SAT 96
--- NOTE | 2020-12-28 15:37 | PHA.REVIEW ---
Pharmacy Admission Review - Admission Clinical Review (Last Reviewed 12/25/20 @ 09:49 by Theodore Nicolas) Cholelithiasis with acute cholecystitis (Acute) Choledocholithiasis (Acute) ampicillin Allergy (Mild, Verified 12/25/20 09:51) rash Sulfa (Sulfonamide Antibiotics) Allergy (Mild, Verified 12/25/20 09:51) rash Height 5 ft 3.75 in Weight 58.627 kg - Renal Dosing Renal Dosing: BUN 11 mg/dL (7-18) D 12/28/20 06:40 Creatinine 0.9 mg/dL (0.55-1.02) 12/28/20 06:40 Medications needing adjustments: Reviewed (levofloxacin adjusted appropriately) List of meds needing interventions: eCrCl 48.11 ml/min - Anticoagulation Anticoagulation: Hgb 11.2 g/dL (11.2-15.7) 12/28/20 06:40 Hct 33.5 % (36.0-46.0) L 12/28/20 06:40 Plt Count 191 10^3/uL (130-400) 12/28/20 06:40 Creatinine 0.9 mg/dL (0.55-1.02) 12/28/20 06:40 DVT Prohphylaxis: Intervened (notified surgeon) Therapeutic Anticoagulation: N/A - Opiate Usage Evaluate Pain Scale/Pains Meds: Reviewed Scheduled Bowel Reg ordered if on Opiates?: No (monitor for need) - Relevant Labs Sodium 139 mmol/L (136-145) 12/28/20 06:40 Potassium 3.9 mmol/L (3.5-5.1) 12/28/20 06:40 Chloride 105 mmol/L (98-107) 12/28/20 06:40 C-Reactive Protein 23.01 mg/dL (0.0-0.3) H 12/28/20 06:40 Electrolytes, C-Reactive P, ESR: Reviewed - DM Control DM Control: Glucose 109 mg/dL (74-106) H 12/28/20 06:40 Insulin Dosing: N/A - Heart Failure/AR EF%, GLENN's, B-Blockers, Diuretics: Reviewed - BP Control BP Control: Blood Pressure 132/85 Blood Pressure 133/80 Blood Pressure 156/81 If elevated: Reviewed (home losartan not ordered yet) - Qtc Review If Elevated: N/A - IV to PO Switch IV Medications: Reviewed - Home Meds Home Med List reviewed: Intervened Relevent Home Meds Not ordered & why?: changed losartan/hcts to plain losartan per pt's external rx history - Current meds Current Medication Order Review: Reviewed (if she is not dc'd today should start dvt prophylaxis)
--- NOTE | 2020-12-28 16:14 | W.PM.DS.N ---
Date of service: 12/28/20 Time of Service: 16:14 DS: Diagnosis Discharge Diagnosis (1) Cholelithiasis with acute cholecystitis: Status: Acute (2) Hypertension: Status: Chronic (3) Hypothyroid: Status: Chronic (4) Choledocholithiasis: Status: Acute Discharge Plan Disposition Patient Disposition: HOME Condition: Good Discharge Details Reason For Visit: CHOLELITHIASIS Admit Date/Time: 12/26/20 10:59 Admit Provider: Karen Bowles Attending Provider: Karen Bowles Primary Care Provider: Chely Michelle Hospital Course Hospital Course: Patient underwent laparoscopic cholecystectomy on 12/26. She had a previous common bile duct stone and gallstone pancreatitis. She did have a subacute infection at the time of her surgery so she was admitted for IV antibiotics. She did have a low-grade temp and low-grade white count. She had some atelectasis on her chest x-ray. Her UA was negative. Home Meds and New Rx's Prescriptions: New tramadol [Ultram] 50 mg tablet 50 mg PO Q6H PRNQty: 10 RF: 0 levofloxacin 500 mg tablet 500 mg PO .48 Qty: 4 RF: 0 Continued multivitamin Capsule 1 cap PO DAILY RF: 0 levothyroxine 88 mcg capsule 88 mcg PO DAILY RF: 0 calcium carbonate-vitamin D3 [Calcium with Vitamin D] 600 mg(1,500mg) -400 unit tablet 1 tab PO DAILY RF: 0 losartan 50 mg tablet 50 mg PO DAILY RF: 0 Discontinued aspirin [Adult Aspirin Regimen] 81 mg tablet,delayed release (DR/EC) 81 mg PO DAILY RF: 0 Discharge Instructions Additional Instructions: Care after Gallbladder Surgery -You should walk frequently, gradually, increasing the distance. You may climb stairs, just go slowly. -You can take Advil 600mg 4 times a day with food for the first week for pain; you may take your prescription medication as prescribed-in addition to the Advil. Discontinue Advil if it hurts your stomach. Do not take Advil if you are intolerant to aspirin products or have stomach problems. -You did have a low-grade infection at the time of your gallbladder removal. We do want you to continue on Levaquin 500 mg every other day for 5 doses. Record daily while you are on antibiotics. ? Use an ice bag for the first 72 hours. This helps to decrease swelling, which causes pain. It is normal to be more sore/painful and swollen towards the end of the day and first thing in the morning. ? Use milk of magnesia or prune juice to prevent constipation (this is a particular side effect of pain medication). Do not allow yourself to become constipated. ? Avoid fatty or greasy foods; introduce these slowly, with care, after about 1 month. Follow the low-fat diet sheet that will be given to you at the office or hospital. ? Start out eating very small, bland amounts of food. Do not take pain pills on an empty stomach. There are Steri-Strips over the drain site. DO NOT REMOVE THESE. It is all right if they get wet. They will be removed in the doctor?s office. ? Do not go swimming or sit in a hot tube for two weeks. ? There are no stitches to remove. ? Do not drive your car x72hrs and then only if you have no pain and can move freely. Do not drive if you are taking pain narcotic pain medications. ? You may resume sexual activity whenever pain and soreness subside, usually in 2 weeks. ? Do no lift anything over 5 lbs. for the first 10 days. Minimize strenuous activity for the next two weeks. ? You may return to work in one week, or when you feel able, provided you do not have to do any heavy lifting or prolonged standing. ? You should return to Dr. Bowles?s office for a postOp appt on : 12/25 at 11:30am. Please call the [facility] at: [phone] if you have any questions or concerns or need to schedule the appointment. Hold aspirin for the next 2 weeks. After 2 weeks you can resume the aspirin. My Medications for pain and nausea are: ibuprofen& Tylenol for moderate pain, and ultram for pain that is a greater than 7. When to Call the Office: ? If the incision becomes red or swollen, or there is more than a little drainage from it. ? If you develop a temperature higher than 100.5 F. ? If your eyes turn yellow ? Vomiting and can?t keep fluids down Activity:: See above Equipment/Supplies:: No Equipment Needed Diet:: See above DS: Data Vitals/I&O Vitals and I&O: Vital Signs Temperature 36.7 C 12/28/20 15:24 Temperature Source Tympanic 12/28/20 15:24 Pulse 83 12/28/20 15:24 Pulse Rhythm Regular 12/28/20 07:38 Respiratory Rate 16 12/28/20 15:24 Respiratory Effort Non-Labored 12/28/20 07:38 Respiratory Depth Normal 12/28/20 07:38 Respiratory Pattern Normal 12/28/20 07:38 Blood Pressure 132/85 12/28/20 15:24 Pulse Oximetry 96 12/28/20 15:24 Respiratory End-tidal CO2 36 12/26/20 12:13 Oxygen Delivery Method Room Air 12/28/20 15:24 Oxygen Flow Rate 0 12/28/20 15:24 Pain Level 2 12/28/20 15:40 Comment 12/27/20 14:53 Intake & Output 12/27/20 12/28/20 12/28/20 23:59 11:59 23:59 Intake Total 1225.833 / 2386.666 718.334 / 718.334 Output Total 1855 / 2535 940 / 1240 300 / 1240 Balance -629.167 / -148.334 -221.666 / -521.666 -300 / -521.666 Intake: IV 505.833 / 1426.666 718.334 / 718.334 Oral 720 / 960 Output: Drainage 55 / 85 10 / 10 Right Mid Anterior Abdomen 55 / 85 10 / 10 Urine 1800 / 2450 930 / 1230 300 / 1230 Other: Urine Color Yellow Straw Straw Urine Appearance Clear Clear Clear Urine Odor Normal Normal Normal Comment Void x1 in the toilet. Void x1 in the toilet. Void x1 in the toilet. Voiding Methods Toilet Toilet Toilet Data Completed and Pending Labs on day of discharge: Labs from last 24 hours 12/28/20 12/28/20 12/28/20 10:51 09:30 06:40 WBC RBC Hgb Hct MCV MCH MCHC RDW Plt Count MPV Immature Gran % Neutrophils % Lymphocytes % Monocytes % Eosinophils % Basophils % Nucleated RBC % Absolute Neutrophils Absolute Lymphocytes Absolute Monocytes Absolute Eosinophils Absolute Basophils D-Dimer 2768 H Sodium 139 Potassium 3.9 Chloride 105 Carbon Dioxide 27.5 Anion Gap 6.5 BUN 11 D Creatinine 0.9 Estimated GFR/1.73 m2 >= 60.00 Glucose 109 H Calcium 8.6 Total Bilirubin 1.0 AST 20 ALT 21 Alkaline Phosphatase 112 C-Reactive Protein 23.01 H Total Protein 6.0 L Albumin 2.7 L Urine Color Yellow Urine Clarity Clear Urine pH 5.5 Ur Specific [place] >= 1.030 H Urine Protein Trace H Urine Ketones Negative Urine Blood Trace-intact H Urine Nitrite Negative Urine Bilirubin Negative Urine Urobilinogen 0.2 Ur Leukocyte Esterase Negative Urine RBC 0-2 Urine WBC 0-2 Ur Epithelial Cells Rare Urine Crystals Negative Urine Bacteria Rare Urine Casts Negative Urine Mucus Trace Ur Culture Indicated? No Urine Glucose Negative 12/28/20 06:40 WBC 15.28 H RBC 3.71 L Hgb 11.2 Hct 33.5 L MCV 90.3 MCH 30.2 MCHC 33.4 RDW 13.4 Plt Count 191 MPV 9.3 Immature Gran % 0.4 Neutrophils % 81.8 Lymphocytes % 8.3 Monocytes % 7.6 Eosinophils % 1.6 Basophils % 0.3 Nucleated RBC % 0 Absolute Neutrophils 12.50 H Absolute Lymphocytes 1.27 Absolute Monocytes 1.16 H Absolute Eosinophils 0.24 Absolute Basophils 0.05 D-Dimer Sodium Potassium Chloride Carbon Dioxide Anion Gap BUN Creatinine Estimated GFR/1.73 m2 Glucose Calcium Total Bilirubin AST ALT Alkaline Phosphatase C-Reactive Protein Total Protein Albumin Urine Color Urine Clarity Urine pH Ur Specific [place] Urine Protein Urine Ketones Urine Blood Urine Nitrite Urine Bilirubin Urine Urobilinogen Ur Leukocyte Esterase Urine RBC Urine WBC Ur Epithelial Cells Urine Crystals Urine Bacteria Urine Casts Urine Mucus Ur Culture Indicated? Urine Glucose 12/27/20 23:52 Blood Blood Culture - Pending 12/27/20 23:52 Blood Blood Culture - Pending Preliminary micro results at discharge 12/27/20 23:52 Blood Culture - Pending Blood 12/27/20 23:52 Blood Culture - Pending Blood [facility] Medical History (Updated 12/26/20 @ 22:25 by Karen Bowles DO) Elevated LFTs Hyperlipidemia Hypertension Hypothyroid Impaired fasting glucose Neuropathy Seborrheic keratoses Surgical History (Updated 12/27/20 @ 13:22 by La Stallings RN) History of cholecystectomy (~12/26/20) History of colon surgery [address] [facility] Social History Smoking/Tobacco Use Status: Never Smoking risk assessment performed?: Yes Alcohol Intake: current Alcohol Intake frequency: holidays/special occasions only Alcohol type: wine Drug use: Never Substance use type: does not use Do you feel safe at home: Yes Do you feel safe in your relationship?: Yes
--- NOTE | 2020-12-28 18:51 | CMPROGNOTE_ITS ---
- If Service Date Differs Date of service: 12/28/20 Time of Service: 18:51 Care Management Progress Note S/O: Bailey was sitting up in bed when CM met with her. She reported that she had a fever last night, but she feels fine today. She stated that she hasn't seen the MD today, but expects to later in the afternoon. Her will pick her up when she is ready. She is very independent in the community. CM will continue to follow. A: Bailey is a 70 year old female admitted to [facility] on 12/26/20 with Cholelithiasis. P: Bailey will return home with no additional services when medically cleared. She will follow up with general surgery, her PCP and discharge plan of care. Her will drive her home when ready via private vehicle. CM will continue to follow.
[2020-12-28 23:21] VITALS: BP 150/85; PULSE 98; RESP 18; TEMP 36.9; O2SAT 95
[2020-12-29] MEDS: Acetaminophen 500 MG TAB 1000 MG PO ×2 (00:02→08:36)
[2020-12-29 06:51] LABS: Abs Immature Grans 0.06 10^3/uL (0.0-0.06); Absolute Basophil Count 0.05 10^3/uL (0.0-0.2); Absolute Lymphocyte Count 1.62 10^3/uL (1.2-3.4); Basophils % 0.3; Eosinophils % 3.3; HCT 33.4 % (36.0-46.0); HGB 11.2 g/dL (11.2-15.7); Immature Grans % 0.4; Lymphocytes % 9.8; MCH 30.8 pg (27.0-33.0); MCHC 33.5 % (32.0-36.0); MCV 91.8 fL (80-95); MPV 9.2 fL (8.0-11.0); Monocytes % 7.3; Neutrophils % 78.9; Nucleated RBC 0 %; Platelet Count 215 10^3/uL (130-400); RBC 3.64 10^6/uL (3.93-5.22); RDW 13.2 % (11.7-14.6); RDW-SD 44.6 fL; WBC 16.53 10^3/uL (4.4-10.8)
[2020-12-29 06:56] LABS: Absolute Eosinophil Count 0.55 10^3/uL (0.0-0.7); Absolute Monocyte Count 1.21 10^3/uL (0.1-0.8); Absolute Neutrophil Count 13.04 10^3/uL (1.2-6.7)
[2020-12-29 07:10] LABS: ALT 18 U/L (14-59); AST 14 U/L (15-37); Albumin 2.6 g/dL (3.4-5.0); Alkaline Phosphatase 131 U/L (46-116); Anion Gap 4.6 mmol/L (3-11); BUN 16 mg/dL (7-18); Bilirubin, Total 0.8 mg/dL (0.2-1.0); CO2 31.4 mmol/L (21.0-32.0); CREATININE 0.9 mg/dL (0.55-1.02); Calcium 9.1 mg/dL (8.5-10.1); Chloride 103 mmol/L (98-107); Glucose 107 mg/dL (74-106); Potassium 3.7 mmol/L (3.5-5.1); Sodium 139 mmol/L (136-145); Total Protein 6.3 g/dL (6.4-8.2)
[2020-12-29 07:46] VITALS: BP 128/78; PULSE 82; RESP 17; TEMP 36.7; O2SAT 94
--- NOTE | 2020-12-29 08:44 | PGE_ITS ---
Date of Service Date of service: 12/29/20 Time of Service: 08:44 Assessment and Plan Assessment and plan (1) Cholelithiasis with acute cholecystitis: Status: Acute Assessment and plan: POD #3 s/p Lap. Cholecystectomy. The patient continues to be doing well. Pain well controlled. VENTURA drain was removed last night. Continue to progress diet to post-op low fat diet, soft diet Denies any fevers or chills. WBC continues to increase today at 16.53. Concern for possible abscess given infection within the gallbladder. May be too soon to see on CT scan. Will discuss with Dr. Weaver. Continue Supportive Care. Encouraged ambulation and pulmonary toilet. (2) Hypertension: Status: Chronic (3) Hypothyroid: Status: Chronic (4) Choledocholithiasis: Status: Acute Subjective Subjective Interval history since last seen: Patient reports she is feeling better compared to yesterday. She is passing flatus and has had several BMs since last night. She states her cramping abdominal pain has resolved following BMs. Exam Const General: cooperative, healthy appearing and comfortable Orientation: alert and oriented x3 Resp Effort & Inspection: normal respiratory effort, no audible wheezes and no cough GI Palpation: soft, no guarding and tender in the RUQ Auscultation: normal bowel sounds Objective Last Vital Signs Temp 36.7 C 12/29/20 07:46 Pulse 82 12/29/20 07:46 Resp 17 12/29/20 07:46 BP 128/78 12/29/20 07:46 Pulse Ox 94 12/29/20 07:46 Laboratory Results - last 24 hr 12/28/20 12/28/20 12/28/20 06:40 09:30 10:51 WBC RBC Hgb Hct MCV MCH MCHC RDW Plt Count MPV Immature Gran % Neutrophils % Lymphocytes % Monocytes % Eosinophils % Basophils % Nucleated RBC % Absolute Neutrophils Absolute Lymphocytes Absolute Monocytes Absolute Eosinophils Absolute Basophils D-Dimer 2768 H Sodium Potassium Chloride Carbon Dioxide Anion Gap BUN Creatinine Estimated GFR/1.73 m2 Glucose Calcium Total Bilirubin AST ALT Alkaline Phosphatase C-Reactive Protein 23.01 H Total Protein Albumin Urine Color Yellow Urine Clarity Clear Urine pH 5.5 Ur Specific [place] >= 1.030 H Urine Protein Trace H Urine Ketones Negative Urine Blood Trace-intact H Urine Nitrite Negative Urine Bilirubin Negative Urine Urobilinogen 0.2 Ur Leukocyte Esterase Negative Urine RBC 0-2 Urine WBC 0-2 Ur Epithelial Cells Rare Urine Crystals Negative Urine Bacteria Rare Urine Casts Negative Urine Mucus Trace Ur Culture Indicated? No Urine Glucose Negative 12/29/20 12/29/20 06:24 06:24 WBC 16.53 H RBC 3.64 L Hgb 11.2 Hct 33.4 L MCV 91.8 MCH 30.8 MCHC 33.5 RDW 13.2 Plt Count 215 MPV 9.2 Immature Gran % 0.4 Neutrophils % 78.9 Lymphocytes % 9.8 Monocytes % 7.3 Eosinophils % 3.3 Basophils % 0.3 Nucleated RBC % 0 Absolute Neutrophils 13.04 H Absolute Lymphocytes 1.62 Absolute Monocytes 1.21 H Absolute Eosinophils 0.55 Absolute Basophils 0.05 D-Dimer Sodium 139 Potassium 3.7 Chloride 103 Carbon Dioxide 31.4 Anion Gap 4.6 BUN 16 Creatinine 0.9 Estimated GFR/1.73 m2 >= 60.00 Glucose 107 H Calcium 9.1 Total Bilirubin 0.8 AST 14 L ALT 18 Alkaline Phosphatase 131 H C-Reactive Protein Total Protein 6.3 L Albumin 2.6 L Urine Color Urine Clarity Urine pH Ur Specific [place] Urine Protein Urine Ketones Urine Blood Urine Nitrite Urine Bilirubin Urine Urobilinogen Ur Leukocyte Esterase Urine RBC Urine WBC Ur Epithelial Cells Urine Crystals Urine Bacteria Urine Casts Urine Mucus Ur Culture Indicated? Urine Glucose
--- NOTE | 2020-12-29 14:04 | DSE_ITS ---
Date of service: 12/29/20 Time of Service: 14:05 DS: Diagnosis Discharge Diagnosis (1) Cholelithiasis with acute cholecystitis: Status: Acute (2) Hypertension: Status: Chronic (3) Hypothyroid: Status: Chronic (4) Choledocholithiasis: Status: Acute Discharge Plan Disposition Patient Disposition: HOME Condition: Good Discharge Details Reason For Visit: CHOLELITHIASIS Admit Date/Time: 12/26/20 10:59 Admit Provider: Karen Bowles Attending Provider: Karen Bowles Primary Care Provider: Chely Michelle Hospital Course Hospital Course: Patient underwent laparoscopic cholecystectomy on 12/26. She had a previous common bile duct stone and gallstone pancreatitis. She did have a subacute infection at the time of her surgery so she was admitted for IV antibiotics. She did have a low-grade temp and low-grade white count. She had some atelectasis on her chest x-ray. Her UA was negative. Home Meds and New Rx's Prescriptions: New tramadol [Ultram] 50 mg tablet 50 mg PO Q6H PRNQty: 10 RF: 0 levofloxacin 500 mg tablet 500 mg PO .48 Qty: 4 RF: 0 Continued multivitamin Capsule 1 cap PO DAILY RF: 0 levothyroxine 88 mcg capsule 88 mcg PO DAILY RF: 0 calcium carbonate-vitamin D3 [Calcium with Vitamin D] 600 mg(1,500mg) -400 unit tablet 1 tab PO DAILY RF: 0 losartan 50 mg tablet 50 mg PO DAILY RF: 0 Discontinued aspirin [Adult Aspirin Regimen] 81 mg tablet,delayed release (DR/EC) 81 mg PO DAILY RF: 0 Discharge Instructions Additional Instructions: Care after Gallbladder Surgery -You should walk frequently, gradually, increasing the distance. You may climb stairs, just go slowly. -You can take Advil 600mg 4 times a day with food for the first week for pain; you may take your prescription medication as prescribed-in addition to the Advil. Discontinue Advil if it hurts your stomach. Do not take Advil if you are intolerant to aspirin products or have stomach problems. -You did have a low-grade infection at the time of your gallbladder removal. We do want you to continue on Levaquin 500 mg every other day for 5 doses. Record daily while you are on antibiotics. ? Use an ice bag for the first 72 hours. This helps to decrease swelling, which causes pain. It is normal to be more sore/painful and swollen towards the end of the day and first thing in the morning. ? Use milk of magnesia or prune juice to prevent constipation (this is a particular side effect of pain medication). Do not allow yourself to become constipated. ? Avoid fatty or greasy foods; introduce these slowly, with care, after about 1 month. Follow the low-fat diet sheet that will be given to you at the office or hospital. ? Start out eating very small, bland amounts of food. Do not take pain pills on an empty stomach. There are Steri-Strips over the drain site. DO NOT REMOVE THESE. It is all right if they get wet. They will be removed in the doctor?s office. ? Do not go swimming or sit in a hot tube for two weeks. ? There are no stitches to remove. ? Do not drive your car x72hrs and then only if you have no pain and can move freely. Do not drive if you are taking pain narcotic pain medications. ? You may resume sexual activity whenever pain and soreness subside, usually in 2 weeks. ? Do no lift anything over 5 lbs. for the first 10 days. Minimize strenuous activity for the next two weeks. ? You may return to work in one week, or when you feel able, provided you do not have to do any heavy lifting or prolonged standing. ? You should return to Dr. Bowles?s office for a postOp appt on : 12/25 at 11:30am. Please call the Surgical Clinic at: [phone] if you have any questions or concerns or need to schedule the appointment. Hold aspirin for the next 2 weeks. After 2 weeks you can resume the aspirin. My Medications for pain and nausea are: ibuprofen& Tylenol for moderate pain, and ultram for pain that is a greater than 7. When to Call the Office: ? If the incision becomes red or swollen, or there is more than a little drainage from it. ? If you develop a temperature higher than 100.5 F. ? If your eyes turn yellow ? Vomiting and can?t keep fluids down Activity:: See above Equipment/Supplies:: No Equipment Needed Diet:: See above DS: Summary Time Spent with Patient providing and/or coordinating discharge services: Less than 30 minutes Status at Discharge Functional status at discharge: independent ambulation Overall status at discharge: patient is progressing back to baseline Mental Status: mental status grossly normal Speech and Movement: speech and movement normal Mood: congruent mood Affect: normal affect Exam GI Other: Laparoscopic cholecystectomy port sites are clean the abdomen is entirely soft and nontender. Psych Mental Status: mental status grossly normal Speech and Movement: speech and movement normal Mood: congruent mood Affect: normal affect DS: Data Vitals/I&O Vitals and I&O: Vital Signs Temperature 98.1 F 12/29/20 07:46 Temperature Source Temporal Artery Scan 12/29/20 07:46 Pulse 82 12/29/20 07:46 Pulse Rhythm Regular 12/29/20 08:40 Respiratory Rate 17 12/29/20 07:46 Respiratory Effort Non-Labored 12/29/20 08:40 Respiratory Depth Normal 12/29/20 08:40 Respiratory Pattern Normal 12/29/20 08:40 Blood Pressure 128/78 12/29/20 07:46 Pulse Oximetry 94 12/29/20 07:46 Respiratory End-tidal CO2 36 12/26/20 12:13 Oxygen Delivery Method Room Air 12/29/20 07:46 Oxygen Flow Rate 0 12/29/20 07:46 Pain Level 1 12/29/20 07:46 Comment 12/27/20 14:53 Intake & Output 12/28/20 12/29/20 12/29/20 23:59 11:59 23:59 Intake Total 535 / 1823.334 180 / 420 240 / 420 Output Total 900 / 1840 600 / 600 Balance -365 / -16.666 -420 / -180 240 / -180 Intake: IV 295 / 1033.334 Oral 240 / 790 180 / 420 240 / 420 Output: Urine 900 / 1830 150 / 150 Stool 450 / 450 Other: Urine Color Straw Yellow Urine Appearance Clear Clear Urine Odor Normal Comment Void x1 in the toilet. Stool Size Moderate Stool Characteristics Soft Brown Voiding Methods Toilet Bedside Commode Data Completed and Pending Labs on day of discharge: Labs from last 24 hours 12/29/20 12/29/20 06:24 06:24 WBC 16.53 H RBC 3.64 L Hgb 11.2 Hct 33.4 L MCV 91.8 MCH 30.8 MCHC 33.5 RDW 13.2 Plt Count 215 MPV 9.2 Immature Gran % 0.4 Neutrophils % 78.9 Lymphocytes % 9.8 Monocytes % 7.3 Eosinophils % 3.3 Basophils % 0.3 Nucleated RBC % 0 Absolute Neutrophils 13.04 H Absolute Lymphocytes 1.62 Absolute Monocytes 1.21 H Absolute Eosinophils 0.55 Absolute Basophils 0.05 Sodium 139 Potassium 3.7 Chloride 103 Carbon Dioxide 31.4 Anion Gap 4.6 BUN 16 Creatinine 0.9 Estimated GFR/1.73 m2 >= 60.00 Glucose 107 H Calcium 9.1 Total Bilirubin 0.8 AST 14 L ALT 18 Alkaline Phosphatase 131 H Total Protein 6.3 L Albumin 2.6 L Preliminary micro results at discharge 12/27/20 23:52 Blood Culture - Preliminary Blood NO GROWTH 24 HOURS 12/27/20 23:52 Blood Culture - Preliminary Blood NO GROWTH 24 HOURS [facility] Medical History Elevated LFTs Hyperlipidemia Hypertension Hypothyroid Impaired fasting glucose Neuropathy Seborrheic keratoses Surgical History History of cholecystectomy (~12/26/20) History of colon surgery 2004 [facility] Social History Smoking/Tobacco Use Status: Never Smoking risk assessment performed?: Yes Alcohol Intake: current Alcohol Intake frequency: holidays/special occasions only Alcohol type: wine Drug use: Never Substance use type: does not use Do you feel safe at home: Yes Do you feel safe in your relationship?: Yes
--- NOTE | 2020-12-29 19:52 | PDOC.CMDIS ---
- If Service Date Differs Date of service: 12/29/20 Time of Service: 19:52 LACE Index Scoring Tool - Questions: Length of Stay (in days): 3 Acuity (Admit via E.D.?): No Comorbidities: Mild Liver/Renal Disease E.D. Visits: 1 - Answers: Total Score: 6 Risk of Readmission: Low Risk Care Management Discharge Reason for Hospitalization: Cholelithiasis Discharge Plan: Bailey will return home today with no additional services. Her will drive her home via private vehicle. She will follow up with her PCP and discharge plan of care. She is happy to be going home. Patient/Family Education Needs: Review discharge instructions regarding activity and medications, discussion of self care needs.
== END 2020-12-29 15:53 | disposition home or self-care (01) | DRG 418 ==
LOC: MS 12:23
PROVIDERS: Surgery; Admitting Provider Surgery; PCP Physician Assistant Medical; Visit Provider Surgery
PROC: 0FT44ZZ Resection of Gallbladder, Percutaneous Endoscopic Approach (ICD-10-PCS; CPT 47563; principal; 2020-12-26 07:30)
DX: K80.12 Calculus of gallbladder with acute and chronic cholecystitis without obstruction (principal); J98.11 Atelectasis; I10 Essential (primary) hypertension; E03.9 Hypothyroidism, unspecified; Z87.19 Personal history of other diseases of the digestive system; E78.5 Hyperlipidemia, unspecified; R73.01 Impaired fasting glucose; G62.9 Polyneuropathy, unspecified
CPT/HCPCS: 47562; 36415; 80053; 87040; 99232; 99238; NC; 71046; 81003; 81015; 85025; 85379; 86140; 88304; 94667; J0690; J1100; J1956; J2001; J2405; J2704; J3010

== ENCOUNTER → 2021-01-04 11:28 | Outpatient (BNVA) | payer MEDICARE, OTHER, SELFPAY | PROVIDERS: PCP Physician Assistant Medical; Referring Provider Physician Assistant Medical; Visit Provider Surgery | DX: Z48.815 Encounter for surgical aftercare following surgery on the digestive system (principal); Z90.49 Acquired absence of other specified parts of digestive tract; D72.829 Elevated white blood cell count, unspecified ==

== ENCOUNTER 2021-01-04 13:43 | Outpatient (REF) | payer MEDICARE, OTHER, SELFPAY ==
[2021-01-04 13:49] LABS: Abs Immature Grans 0.06 10^3/uL (0.0-0.06); Absolute Basophil Count 0.04 10^3/uL (0.0-0.2); Absolute Eosinophil Count 0.14 10^3/uL (0.0-0.7); Absolute Lymphocyte Count 1.64 10^3/uL (1.2-3.4); Absolute Neutrophil Count 8.01 10^3/uL (1.2-6.7); Basophils % 0.4; Eosinophils % 1.3; HCT 36.8 % (36.0-46.0); HGB 12.2 g/dL (11.2-15.7); Immature Grans % 0.6; Lymphocytes % 15.5; MCH 29.8 pg (27.0-33.0); MCHC 33.2 % (32.0-36.0); Monocytes % 6.6; Neutrophils % 75.6; Nucleated RBC 0 %; Platelet Count 548 10^3/uL (130-400); RBC 4.09 10^6/uL (3.93-5.22); RDW-SD 42.9 fL; WBC 10.59 10^3/uL (4.4-10.8)
[2021-01-04 14:44] LABS: C-Reactive Protein 3.38 mg/dL (0.0-0.3)
== END 2021-01-04 13:44 | disposition home or self-care (01) ==
LOC: LBN 13:43
PROVIDERS: PCP Physician Assistant Medical; Visit Provider Surgery
DX: D72.829 Elevated white blood cell count, unspecified (principal); K80.00 Calculus of gallbladder with acute cholecystitis without obstruction
CPT/HCPCS: 85025; 86140

== ENCOUNTER 2021-11-06 18:32 | Outpatient (REF) | payer MEDICARE, OTHER, SELFPAY ==
[2021-11-06 20:10] LABS: Hemoglobin A1C 5.7 % (<5.7)
[2021-11-06 20:12] LABS: ALT 19 U/L (14-59); AST 17 U/L (15-37); Albumin 3.8 g/dL (3.4-5.0); Alkaline Phosphatase 121 U/L (46-116); BUN 13 mg/dL (7-18); Bilirubin, Total 0.4 mg/dL (0.2-1.0); CREATININE 1.1 mg/dL (0.55-1.02); Calcium 8.9 mg/dL (8.5-10.1); Calculated LDL 107 mg/dL (<100); Chloride 106 mmol/L (98-107); Cholesterol 186 mg/dL (<200); Estimated GFR 48.96 (mL/min/1.73m2); Glucose 95 mg/dL (74-106); HDL Cholesterol 47 mg/dL (40-60); Potassium 4.7 mmol/L (3.5-5.1); Sodium 143 mmol/L (136-145); Triglyceride 163 mg/dL (<150)
[2021-11-06 20:20] LABS: TSH 0.39 uIU/mL (0.36-3.74)
== END 2021-11-06 18:33 | disposition home or self-care (01) ==
LOC: NCHCN 18:32
PROVIDERS: PCP Physician Assistant Medical; Visit Provider Physician Assistant Medical
DX: E03.9 Hypothyroidism, unspecified (principal); R73.03 Prediabetes; E78.5 Hyperlipidemia, unspecified
CPT/HCPCS: 80053; 80061; 83036; 84443

== ENCOUNTER 2022-04-30 20:20 | Outpatient (REF) | payer MEDICARE, OTHER, SELFPAY ==
[2022-04-30 16:39] LABS: Hemoglobin A1C 5.7 % (<5.7)
[2022-04-30 16:51] LABS: Anion Gap 7.7 mmol/L (3-11); BUN 17 mg/dL (7-18); CO2 29.3 mmol/L (21.0-32.0); Chloride 107 mmol/L (98-107); Estimated GFR 54.66 (mL/min/1.73m2); Glucose 107 mg/dL (74-106); Magnesium 2.1 mg/dL (1.8-2.4); Potassium 3.8 mmol/L (3.5-5.1); Sodium 144 mmol/L (136-145); TSH 0.27 uIU/mL (0.36-3.74); Vitamin B12 275 pg/mL (193-986)
[2022-04-30 17:09] LABS: Calcium 9.6 mg/dL (8.5-10.1)
== END 2022-04-30 20:21 | disposition home or self-care (01) ==
LOC: NCHCN 20:20
PROVIDERS: PCP Physician Assistant Medical; Visit Provider Physician Assistant Medical
DX: I10 Essential (primary) hypertension (principal); G62.89 Other specified polyneuropathies; E03.9 Hypothyroidism, unspecified; R73.03 Prediabetes
CPT/HCPCS: 80048; 82607; 83036; 83735; 84443

== ENCOUNTER → 2022-06-03 02:00 | Outpatient (CLI) | payer MEDICARE, OTHER, SELFPAY ==
--- NOTE | 2022-06-03 13:01 | DI.MAMMO_ITS ---
Exam(s) MAMMO SCREENING EXAM: MAMMO SCREENING CLINICAL HISTORY: SCREENING, Z12.31. TECHNIQUE: Bilateral full field digital CC and MLO mammographic images were obtained with 3D tomosyn thesis and utilizing computer aided detection (CAD). COMPARISON: Prior mammograms were reviewed, the most recent being November 2019. FINDINGS: Small benign-appearing nodule laterally in the left breast is unchanged from prior studies. There are no new spiculated masses nor malignant appearing microcalcification groups. There is no significant architectural distortion nor skin thickening-retraction. IMPRESSION: No radiographic evidence of malignancy. BI-RADS Category 1 - Negative Breast Density - Category B - Scattered areas of fibroglandular density Breast density Category C or D implies that the patient has dense breast tissue. Dense breast tissue can make it harder to find cancer on a mammogram. Dense breast tissue is also associated with an incr eased risk of breast cancer. This information about the result of the mammogram report was provided to the patient to raise their awareness. Use this report when you speak with the patient about their risks for breast cancer, which includes their family history. At that time, you may recommend additional screening tests (Ultrasoun d or MRI) as these tests may add significant information. A negative radiographic report should not delay biopsy if a dominant or clinically suspicious mass is present. Up to ten percent of cancers are not identified on mammography. A negative report may reinforce clinical impression. Adenosis and dense breasts may obscure an underlying neoplasm. False positive reports average 6 to 10%. Patient will receive a letter notifying them of these results.
== END ==
PROVIDERS: PCP Physician Assistant Medical; Visit Provider Physician Assistant Medical
DX: Z12.31 Encounter for screening mammogram for malignant neoplasm of breast (principal)
CPT/HCPCS: 77063; 77067

== ENCOUNTER 2022-07-09 15:34 | Outpatient (REF) | payer MEDICARE, OTHER, SELFPAY ==
[2022-07-09 15:27] LABS: TSH (W/Ref FT4) 1.02 uIU/mL (0.36-3.74)
== END 2022-07-09 15:35 | disposition home or self-care (01) ==
LOC: NCHCN 15:34
PROVIDERS: PCP Physician Assistant Medical; Visit Provider Physician Assistant Medical
DX: E03.9 Hypothyroidism, unspecified (principal)
CPT/HCPCS: 84443

== ENCOUNTER 2023-02-25 17:11 | Outpatient (REF) | payer MEDICARE, OTHER, SELFPAY ==
[2023-02-25 16:25] LABS: Hemoglobin A1C 5.9 % (<5.7)
[2023-02-25 16:28] LABS: ALT 20 U/L (14-59); AST 18 U/L (15-37); Albumin 3.8 g/dL (3.4-5.0); Alkaline Phosphatase 140 U/L (46-116); Anion Gap 7.1 mmol/L (3-11); BUN 24 mg/dL (7-18); Bilirubin, Total 0.5 mg/dL (0.2-1.0); CO2 28.9 mmol/L (21.0-32.0); CREATININE 1.2 mg/dL (0.55-1.02); Calcium 9.6 mg/dL (8.5-10.1); Calculated LDL 91 mg/dL (<100); Chloride 106 mmol/L (98-107); Cholesterol 198 mg/dL (<200); Estimated GFR 48.09 (mL/min/1.73m2); Glucose 105 mg/dL (74-106); HDL Cholesterol 53 mg/dL (40-60); Potassium 4.4 mmol/L (3.5-5.1); Sodium 142 mmol/L (136-145); TSH 5.68 uIU/mL (0.36-3.74); Total Protein 7.4 g/dL (6.4-8.2); Triglyceride 273 mg/dL (<150)
== END 2023-02-25 17:12 | disposition home or self-care (01) ==
LOC: NCHCN 17:11
PROVIDERS: PCP Physician Assistant Medical; Visit Provider Physician Assistant Medical
DX: R79.89 Other specified abnormal findings of blood chemistry (principal); R94.5 Abnormal results of liver function studies; R73.03 Prediabetes; E03.9 Hypothyroidism, unspecified; I10 Essential (primary) hypertension
CPT/HCPCS: 80053; 80061; 83036; 84443

== ENCOUNTER 2023-04-18 18:23 | Outpatient (REF) | payer MEDICARE, OTHER, SELFPAY ==
[2023-04-18 18:11] LABS: TSH 0.26 uIU/mL (0.36-3.74)
== END 2023-04-18 18:24 | disposition home or self-care (01) ==
LOC: NCHCN 18:23
PROVIDERS: PCP Physician Assistant Medical; Visit Provider Physician Assistant Medical
DX: E03.9 Hypothyroidism, unspecified (principal)
CPT/HCPCS: 84443

== ENCOUNTER 2023-06-10 11:42 | Outpatient (REF) | payer MEDICARE, OTHER, SELFPAY ==
[2023-06-10 16:30] LABS: TSH 0.29 uIU/mL (0.36-3.74)
== END 2023-06-10 11:43 | disposition home or self-care (01) ==
LOC: NCHCN 11:42
PROVIDERS: PCP Physician Assistant Medical; Visit Provider Physician Assistant Medical
DX: E03.9 Hypothyroidism, unspecified (principal)
CPT/HCPCS: 84443

== ENCOUNTER 2023-08-06 16:22 | Outpatient (REF) | payer MEDICARE, OTHER, SELFPAY ==
[2023-08-06 20:04] LABS: TSH 0.51 uIU/mL (0.36-3.74)
== END 2023-08-06 16:23 | disposition home or self-care (01) ==
LOC: NCHCN 16:22
PROVIDERS: PCP Physician Assistant Medical; Visit Provider Physician Assistant Medical
DX: E03.9 Hypothyroidism, unspecified (principal)
CPT/HCPCS: 84443

== ENCOUNTER 2023-10-15 12:34 | Outpatient (REF) | payer MEDICARE, OTHER, SELFPAY ==
[2023-10-15 15:17] LABS: Anion Gap 7.3 mmol/L (3-11); BUN 18 mg/dL (7-18); CO2 31.7 mmol/L (21.0-32.0); CREATININE 1.3 mg/dL (0.55-1.02); Chloride 103 mmol/L (98-107); Estimated GFR 43.42 (mL/min/1.73m2); Glucose 111 mg/dL (74-106); Potassium 3.9 mmol/L (3.5-5.1); Sodium 142 mmol/L (136-145)
== END 2023-10-15 12:35 | disposition home or self-care (01) ==
LOC: NCHCN 12:34
PROVIDERS: PCP Physician Assistant Medical; Visit Provider Physician Assistant Medical
DX: I10 Essential (primary) hypertension (principal)
CPT/HCPCS: 80048

== ENCOUNTER 2023-10-22 10:53 | Outpatient (REF) | payer MEDICARE, OTHER, SELFPAY ==
[2023-10-22 15:03] LABS: Microalb ug/mg Crea 5.9 ug/mg Cr
== END 2023-10-22 10:54 | disposition home or self-care (01) ==
LOC: NCHCN 10:53
PROVIDERS: PCP Physician Assistant Medical; Visit Provider Physician Assistant Medical
DX: I10 Essential (primary) hypertension (principal); R79.89 Other specified abnormal findings of blood chemistry
CPT/HCPCS: 82043; 82570

== ENCOUNTER 2024-03-31 16:07 | Outpatient (REF) | payer MEDICARE, OTHER, SELFPAY ==
[2024-03-31 19:51] LABS: Abs Immature Grans 0.02 10^3/uL (0.0-0.06); Absolute Basophil Count 0.06 10^3/uL (0.0-0.2); Absolute Eosinophil Count 0.39 10^3/uL (0.0-0.7); Absolute Lymphocyte Count 2.08 10^3/uL (1.2-3.4); Absolute Monocyte Count 0.64 10^3/uL (0.1-0.8); Absolute Neutrophil Count 3.57 10^3/uL (1.2-6.7); Basophils % 0.9 %; Eosinophils % 5.8 %; HGB 11.9 g/dL (11.2-15.7); Immature Grans % 0.3 %; Lymphocytes % 30.8 %; MCH 30.3 pg (27.0-33.0); MCHC 33.1 % (32.0-36.0); MCV 92 fL (80-95); MPV 9.4 fL (8.0-11.0); Monocytes % 9.5 %; Neutrophils % 52.7 %; Platelet Count 260 10^3/uL (130-400); RBC 3.93 10^6/uL (3.93-5.22); RDW 13.2 % (11.7-14.6); RDW-SD 43.9 fL; WBC 6.76 10^3/uL (4.4-10.8)
[2024-03-31 20:04] LABS: ALT 25 U/L (14-59); AST 24 U/L (15-37); Albumin 3.1 g/dL (3.4-5.0); Alkaline Phosphatase 118 U/L (46-116); Anion Gap 6.4 mmol/L (3-11); BUN 20 mg/dL (7-18); Bilirubin, Total 0.5 mg/dL (0.2-1.0); CO2 28.6 mmol/L (21.0-32.0); CREATININE 1.2 mg/dL (0.55-1.02); Calcium 8.8 mg/dL (8.5-10.1); Chloride 106 mmol/L (98-107); Glucose 118 mg/dL (74-106); Potassium 3.6 mmol/L (3.5-5.1); Sodium 141 mmol/L (136-145); Total Protein 5.9 g/dL (6.4-8.2)
[2024-03-31 20:14] LABS: Hemoglobin A1C 6.1 % (<5.7)
== END 2024-03-31 16:08 | disposition home or self-care (01) ==
LOC: NCHCN 16:07
PROVIDERS: PCP Physician Assistant Medical; Visit Provider Physician Assistant Medical
DX: R73.03 Prediabetes (principal); R60.9 Edema, unspecified
CPT/HCPCS: 80053; 83036; 85025

== ENCOUNTER 2024-07-13 16:13 | Outpatient (REF) | payer MEDICARE, OTHER, SELFPAY ==
[2024-07-13 15:17] LABS: Hemoglobin A1C 5.8 % (<5.7)
[2024-07-13 15:47] LABS: ALT 36 U/L (14-59); AST 40 U/L (15-37); Albumin 3.9 g/dL (3.4-5.0); Alkaline Phosphatase 117 U/L (46-116); Anion Gap 3.9 mmol/L (3-11); BUN 24 mg/dL (7-18); Bilirubin, Total 0.37 mg/dL (0.2-1.0); CO2 38.1 mmol/L (21.0-32.0); CREATININE 1.4 mg/dL (0.55-1.02); Calcium 10.8 mg/dL (8.5-10.1); Chloride 99 mmol/L (98-107); Cholesterol 217 mg/dL (<200); Estimated GFR 39.48 (mL/min/1.73m2); Glucose 116 mg/dL (74-106); HDL Cholesterol 51 mg/dL (40-60); Potassium 4.7 mmol/L (3.5-5.1); Sodium 141 mmol/L (136-145); TSH (W/Ref FT4) 11.94 uIU/mL (0.36-3.74); Total Protein 7.4 g/dL (6.4-8.2); Triglyceride 412 mg/dL (<150)
[2024-07-13 16:13] LABS: FREE T4 1.13 ng/dL (0.76-1.46); LDL CHOLESTEROL 110 mg/dL (<100)
== END 2024-07-13 16:14 | disposition home or self-care (01) ==
LOC: NCHCN 16:13
PROVIDERS: PCP Physician Assistant Medical; Visit Provider Physician Assistant Medical
DX: I10 Essential (primary) hypertension (principal); R73.03 Prediabetes
CPT/HCPCS: 80053; 80061; 83721; 83036; 84439; 84443

== ENCOUNTER 2024-09-06 13:23 | Outpatient (REF) | payer MEDICARE, OTHER, SELFPAY ==
[2024-09-06 17:01] LABS: ALT 34 U/L (14-59); AST 36 U/L (15-37); Albumin 3.6 g/dL (3.4-5.0); Alkaline Phosphatase 121 U/L (46-116); Anion Gap 5.3 mmol/L (3-11); BUN 19 mg/dL (7-18); Bilirubin, Total 0.75 mg/dL (0.2-1.0); CO2 33.7 mmol/L (21.0-32.0); CREATININE 1.3 mg/dL (0.55-1.02); Calcium 10.1 mg/dL (8.5-10.1); Chloride 105 mmol/L (98-107); Estimated GFR 43.15 (mL/min/1.73m2); Glucose 114 mg/dL (74-106); Potassium 4.6 mmol/L (3.5-5.1); Sodium 144 mmol/L (136-145)
[2024-09-06 17:24] LABS: FREE T4 1.06 ng/dL (0.76-1.46)
[2024-09-09 08:50] LABS: Misc Referral (UVM) See Comments
== END 2024-09-06 13:24 | disposition home or self-care (01) ==
LOC: NCHCN 13:23
PROVIDERS: PCP Physician Assistant Medical; Visit Provider Physician Assistant Medical
DX: I10 Essential (primary) hypertension (principal)
CPT/HCPCS: 80053; 82043; 82570; 84439; 84443

== ENCOUNTER 2024-11-09 09:34 | Outpatient (REF) | payer MEDICARE, OTHER, SELFPAY ==
[2024-11-09 15:22] LABS: Hemoglobin A1C 5.8 % (<5.7)
[2024-11-09 15:37] LABS: Anion Gap 4.9 mmol/L (3-11); BUN 21 mg/dL (7-18); CO2 33.1 mmol/L (21.0-32.0); CREATININE 1.5 mg/dL (0.55-1.02); Calcium 10.2 mg/dL (8.5-10.1); Chloride 103 mmol/L (98-107); Estimated GFR 36.34 (mL/min/1.73m2); Glucose 108 mg/dL (74-106); Potassium 4.7 mmol/L (3.5-5.1); Sodium 141 mmol/L (136-145); TSH (W/Ref FT4) 7.27 uIU/mL (0.36-3.74)
[2024-11-09 15:56] LABS: FREE T4 1.11 ng/dL (0.76-1.46)
== END 2024-11-09 09:35 | disposition home or self-care (01) ==
LOC: NCHCN 09:34
PROVIDERS: PCP Physician Assistant Medical; Visit Provider Physician Assistant Medical
DX: R73.03 Prediabetes (principal); E03.9 Hypothyroidism, unspecified
CPT/HCPCS: 80048; 83036; 84439; 84443

== ENCOUNTER 2025-01-10 12:44 | Outpatient (CLI) | payer MEDICARE, OTHER, SELFPAY ==
[2025-01-10 15:10] LABS: Anion Gap 8.4 mmol/L (3-11); BUN 22 mg/dL (7-18); CO2 36.6 mmol/L (21.0-32.0); CREATININE 1.2 mg/dL (0.55-1.02); Calcium 10.6 mg/dL (8.5-10.1); Chloride 99 mmol/L (98-107); Glucose 92 mg/dL (74-106); Potassium 3.3 mmol/L (3.5-5.1); Sodium 144 mmol/L (136-145); TSH (W/Ref FT4) 3.14 uIU/mL (0.36-3.74); Vitamin D 25 Total 48.2 ng/mL (30-100)
== END 2025-01-10 12:45 | disposition home or self-care (01) ==
LOC: LBO 12:44
PROVIDERS: PCP Physician Assistant Medical; Visit Provider Physician Assistant Medical
DX: E03.9 Hypothyroidism, unspecified (principal); N18.9 Chronic kidney disease, unspecified
CPT/HCPCS: 36415; 80048; 82306; 83970; 84443

== ENCOUNTER 2025-01-10 13:06 | Outpatient (REF) | payer MEDICARE, OTHER, SELFPAY ==
[2025-01-10 17:34] LABS: COMMENT (LAB VIEW ONLY) 113.19 mg/dL
[2025-01-10 17:36] LABS: Microalb ug/mg Crea 134.6 ug/mg Cr
== END 2025-01-10 13:07 | disposition home or self-care (01) ==
LOC: NCHCN 13:06
PROVIDERS: PCP Physician Assistant Medical; Visit Provider Physician Assistant Medical
DX: I10 Essential (primary) hypertension (principal)
CPT/HCPCS: 82043; 82570

== ENCOUNTER 2025-04-12 13:33 | Outpatient (REF) | payer MEDICARE, SELFPAY ==
[2025-04-12 16:16] LABS: COMMENT (LAB VIEW ONLY) 241.73 mg/dL; Microalb ug/mg Crea 17.8 ug/mg Cr
== END 2025-04-12 13:34 | disposition home or self-care (01) ==
LOC: NCHCN 13:33
PROVIDERS: PCP Physician Assistant Medical; Visit Provider Physician Assistant Medical
DX: N18.9 Chronic kidney disease, unspecified (principal)
CPT/HCPCS: 82043; 82570

== ENCOUNTER 2025-05-11 21:39 | Outpatient (REF) | payer MEDICARE, SELFPAY ==
[2025-05-11 15:52] LABS: Anion Gap 9.6 mmol/L (3-11); BUN 32 mg/dL (7-18); CO2 32.4 mmol/L (21.0-32.0); Calcium 9.4 mg/dL (8.5-10.1); Chloride 102 mmol/L (98-107); Estimated GFR 39.23 (mL/min/1.73m2); Glucose 141 mg/dL (74-106); Potassium 3.9 mmol/L (3.5-5.1); Sodium 144 mmol/L (136-145)
== END 2025-05-11 21:40 | disposition home or self-care (01) ==
LOC: NCHCN 21:39
PROVIDERS: PCP Physician Assistant Medical; Visit Provider Physician Assistant Medical
DX: N18.9 Chronic kidney disease, unspecified (principal)
CPT/HCPCS: 80048

== ENCOUNTER 2025-07-12 16:00 | Outpatient (REF) | payer MEDICARE, SELFPAY ==
[2025-07-12 16:57] LABS: ALT 36 U/L (14-59); AST 38 U/L (15-37); Albumin 4.0 g/dL (3.4-5.0); Alkaline Phosphatase 116 U/L (46-116); Anion Gap 7.3 mmol/L (3-11); BUN 31 mg/dL (7-18); Bilirubin, Total 0.5 mg/dL (0.2-1.0); CO2 36.7 mmol/L (21.0-32.0); Calcium 10.2 mg/dL (8.5-10.1); Calculated LDL 81 mg/dL (<100); Chloride 95 mmol/L (98-107); Cholesterol 189 mg/dL (<200); Estimated GFR 39.23 (mL/min/1.73m2); Glucose 105 mg/dL (74-106); HDL Cholesterol 45 mg/dL (>or=50); Potassium 3.7 mmol/L (3.5-5.1); Sodium 139 mmol/L (136-145); Total Protein 7.4 g/dL (6.4-8.2); Triglyceride 318 mg/dL (<150)
[2025-07-12 17:12] LABS: Hemoglobin A1C 5.8 % (<5.7)
== END 2025-07-12 16:01 | disposition home or self-care (01) ==
LOC: NCHCN 16:00
PROVIDERS: PCP Physician Assistant Medical; Visit Provider Physician Assistant Medical
DX: N18.9 Chronic kidney disease, unspecified (principal); R73.03 Prediabetes; I10 Essential (primary) hypertension
CPT/HCPCS: 80053; 80061; 83036

== ENCOUNTER 2025-08-08 03:30 | Outpatient (CLI) | payer MEDICARE, SELFPAY ==
--- NOTE | 2025-08-08 12:20 | DI.MAMMO_ITS ---
Exam(s) MAMMO SCREENING EXAM: MAMMO SCREENING CLINICAL HISTORY: SCREENING MAMMO Z12.31. TECHNIQUE: Bilateral full field digital CC and MLO mammographic images were obtained with 3D tomosynthesis and utilizing computer aided detection (CAD). COMPARISON: Prior mammograms were reviewed. FINDINGS: There has been no significant change in the appearance and distribution of the fibroglandular tissue. Small benign-appearing nodules are unchanged from prior mammograms. There are no new spiculated masses nor malignant appearing microcalcification groups. There is no significant architectural distortion nor skin thickening-retraction. IMPRESSION: No radiographic evidence of malignancy. Stable benign findings. BI-RADS Category 2 - Benign Findings Breast Density - Category B - There are scattered areas of fibroglandular density. Breast density Category C or D implies that the patient has dense breast tissue. Dense breast tissue can make it harder to find cancer on a mammogram. Dense breast tissue is also associated with an increased risk of breast cancer. This information about the result of the mammogram report was provided to the patient to raise their awareness. Use this report when you speak with the patient about their risks for breast cancer, which includes their family history. At that time, you may recommend additional screening tests (Ultrasound or MRI) as these tests may add significant information. A negative radiographic report should not delay biopsy if a dominant or clinically suspicious mass is present. Up to ten percent of cancers are not identified on mammography. A negative report may reinforce clinical impression. Adenosis and dense breasts may obscure an underlying neoplasm. False positive reports average 6 to 10%. Patient will receive a letter notifying them of these results.
== END 2025-08-08 03:50 ==
LOC: DI 03:30
PROVIDERS: PCP Physician Assistant Medical; Visit Provider Physician Assistant Medical
DX: Z12.31 Encounter for screening mammogram for malignant neoplasm of breast (principal); R92.323 Mammographic fibroglandular density, bilateral breasts
CPT/HCPCS: 77063; 77067